=== PATIENT | female | born 2000 | race Caucasian/White ===

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

== ENCOUNTER → 2018-10-08 | Outpatient (CLI) | payer OTHER ==
[2018-10-08 14:05] LABS: HCT 39.5 % (34.0-46.0); HGB 12.4 gm/dL (11.4-16.0); MCH 28.3 pg (25.0-35.0); MCHC 31.4 g/dL (31.0-37.0); MCV 90.1 fL (80.0-100.0); Mean Platelet Volume 7.1; Platelet Count 214 k/uL (150-450); RBC 4.39 m/uL (3.80-5.40); RDW 12.6 % (11.5-15.5); WBC 9.1 k/uL (4.0-11.0)
--- NOTE | 2018-10-08 14:14 | US ---
EXAMINATION TYPE: Transabdominal DATE OF EXAM: 12/26/17 COMPARISON: NONE CLINICAL HISTORY: Z36 Confirm dates- patient states LMP does not correlate to previous ultrasounds [facility]. EXAM PERFORMED: Transabdominal (TA) EXAM MEASUREMENTS: GESTATIONAL AGE / DATING Physician Established: Not yet established Dates by LMP: 07/03/2018 Dates by First Scan: No previous this is first scan Dates by Current Scan for: (10 weeks/4 days) EDC: 05/02/2019 MATERNAL ANATOMY Uterus: 11.6 x 3.9 x 5.9 cm Right Ovary: 2.2 x 1.3 x 1.8 cm Left Ovary: 3.6 x 2.3 x 3.2 cm Post CDS / Adnexa: wnl Presence of free fluid: No Presence of corpus luteal cyst: Yes, left ovary measuring 1.5 x 1.2 x 1.3 cm Presence of subchorionic bleed: No GESTATION / SURVEY CRL: 3.7 cm (10 weeks/4 days) Heart Rate: 171 bpm Rhythm: Normal IUP: Live IUP Date of LMP: 07/03/2018 Beta HcG (if available): Not available at this time Live IUP with an STEPHANIE of 05/02/2019 by this exam IMPRESSION: Single live intrauterine with a sonographic age of 10 weeks and 4 days and estimated date o f delivery of 05/02/2019. Dates are discordant with menstrual age.
[2018-10-08 14:22] LABS: Glucose 97 mg/dL (74-99)
[2018-10-08 20:43] LABS: HIV 1 AB Non-Reactive (Non-Reactive); HIV AB P24 Non-Reactive (Non-Reactive); HIV P24 AG Non-Reactive (Non-Reactive)
[2018-10-09 03:54] LABS: Toxoplasma Antibody (IgG) <3.0 IU/mL (<7.2); Toxoplasma Antibody (IgM) 3.4 AU/mL (<8.0)
== END ==
LOC: RADUSWWP 12:59
PROVIDERS: ATTEND Obstetrics & Gynecology
DX: Z36.89 Encounter for other specified antenatal screening (principal); Z34.01 Encounter for supervision of normal first pregnancy, first trimester; Z3A.10 10 weeks gestation of pregnancy
CPT/HCPCS: 76801; 82565; 82947; 85027; 86762; 86777; 86778; 86780; 86850; 86900; 86901; 87340; 87390

== ENCOUNTER 2018-10-29 21:07 | Emergency (ER) | payer OTHER ==
[2018-10-29 21:31] VITALS: BP 109/71; PULSE 92; RESP 20; TEMP 98.1
--- NOTE | 2018-10-29 22:19 | ED ---
General Adult HPI - General Chief complaint: Skin/Abscess/Foreign Body Stated complaint: rash on back of neck Time Seen by Provider: 10/29/18 21:36 Source: patient, family, RN notes reviewed, old records reviewed Mode of arrival: ambulatory Limitations: no limitations - History of Present Illness Initial comments: 18-year-old female patient 14 weeks gestation presents to ED with rash on back of neck resembling tinea corporis. Patient has not had this before. Patient states that he was first noticed by her sister yesterday. Patient denies any other complaints. Patient denies fever chills, abdominal pain, vaginal bleeding, vaginal discharge, dysuria. Systemic: Pt denies fatigue, myalgia, fever/chills. Pt denies weakness, night sweats, weight loss. Neuro: Pt denies headache, visual disturbances, syncope or pre-syncope. HEENT: Pt denies ocular discharge or irritation, otalgia, rhinorrhea, pharyngitis or notable lymphadenopathy. Cardiopulmonary: Pt denies chest pain, SOB, heart palpitations, dyspnea on exertion. Abdominal/GI: Pt denies abdominal pain, n/v/d. : Pt denies dysuria, burning w/ urination, frequency/urgency. Denies new onset urinary or bowel incontinence. MSK: Pt denies myalgia, loss of strength or function in extremities. Neuro: Pt denies new onset weakness, paresthesias. - Related Data Home Medications Medication Instructions Recorded Confirmed Albuterol Inhaler [Ventolin Hfa 1 - 2 puff INHALATION RT-QID PRN 08/25/17 Inhaler] Previous Rx's Medication Instructions Recorded Amoxicillin 500 mg PO Q8H 10 Days day 08/25/17 Clotrimazole [Clotrimazole 1% Top 1 applic TOPICAL Q12HR 14 Days #1 10/29/18 Soln] tube Allergies Allergy/AdvReac Type Severity Reaction Status Date / Time Latex, Natural Rubber Allergy Swelling Verified 10/29/18 21:31 Review of Systems ROS Statement: Those systems with pertinent positive or pertinent negative responses have been documented in the HPI. ROS Other: All systems not noted in ROS Statement are negative. Past Medical History Past Medical History: Asthma History of Any Multi-Drug Resistant Organisms: None Reported Past Surgical History: No Surgical Hx Reported Past Psychological History: Depression Smoking Status: Never smoker Past Alcohol Use History: None Reported Past Drug Use History: Marijuana General Exam - General Exam Comments Initial Comments: Constitutional: NAD, AOX3, Pt has pleasant affect. HEENT: NC/AT, trachea midline, neck supple, no lymphadenopathy. Posterior pharynx non erythematous, without exudates. External ears appear normal, without discharge. Mucous membranes moist. Eyes PERRLA, EOM intact. There is no scleral icterus. No pallor noted. Cardiopulmonary: RRR, no murmurs, rubs or gallops, no JVD noted. Lungs CTAB in anterior and posterior alvarado. No peripheral edema. Abdominal exam: Abdomen soft and non-distended. Abdomen non-tender to palpation in all 4 quadrants. Bowel sounds active in LLQ. No hepatosplenomegaly. No ecchymosis Neuro: CN II-XII grossly intact. No nuchal rigidity. MSK: No posterior calf tenderness bilaterally, homans sign negative bilaterally. Posterior tibialis and radial pulse +2 bilaterally. Sensation intact in upper and lower extremities. Full active ROM in upper and lower extremities, 5/5 stregnth. Derm: Tinea corporis rash approx 2cm in diameter noted on posterior neck. Limitations: no limitations Course Vital Signs 10/29/18 21:27 Temperature 98.1 F Pulse Rate 92 Respiratory 20 Rate Blood Pressure 109/71 O2 Sat by Pulse 97 Oximetry Medical Decision Making - Medical Decision Making 18-year-old female patient 14 weeks gestation presents to ED with tinea corporis. Patient has no other complaints. Patient vital signs stable. Patient to be treated with clotrimazole. Patient to follow up with primary care provider and [facility]IRSPR[facility] CUTTER in 1-2 days. Patient to return to ED if new signs or symptoms develop. Case discussed in depth with Dr. Magaña. Disposition Clinical Impression: Tinea corporis Disposition: HOME SELF-CARE Condition: Stable Instructions (If sedation given, give patient instructions): Tinea Corporis (ED ) Additional Instructions: Patient to adhere to previously discussed treatment plan and will take medication(s) as directed. Patient to follow up with PCP in 1-2 days. Patient to return to ED if symptoms do not improve. Prescriptions: Clotrimazole [Clotrimazole 1% Top Soln] 1 applic TOPICAL Q12HR 14 Days #1 tube Is patient prescribed a controlled substance at d/c from ED?: No Referrals: Tye Stark MD [Primary Care Provider] - 1-2 days
== END 2018-10-29 22:23 | disposition home or self-care (01) ==
LOC: EC 21:07
DX: O98.811 Other maternal infectious and parasitic diseases complicating pregnancy, first trimester (principal); B35.4 Tinea corporis; O99.511 Diseases of the respiratory system complicating pregnancy, first trimester; J45.909 Unspecified asthma, uncomplicated; Z3A.14 14 weeks gestation of pregnancy; Z91.040 Latex allergy status
CPT/HCPCS: 99283

== ENCOUNTER 2018-11-29 10:36 | Emergency (ER) | payer OTHER ==
[2018-11-29] MEDS ORDERED: SODIUM CHLORIDE 0.9% 1,000 ML IV STA (11:32)
--- NOTE | 2018-11-29 11:59 | ED ---
Dizziness HPI - General Chief Complaint: Dizziness Stated Complaint: 18 WEEKS , DIZZINESS, NAUSEA, SOB Time Seen by Provider: 11/29/18 11:24 Source: patient, RN notes reviewed Mode of arrival: ambulatory Limitations: no limitations - History of Present Illness Initial Comments: 18-year-old female presents emergency Department with chief complaint of near syncopal episode. Patient states she was at work states she was not feeling well and states that she started walking towards the back break room. Patient states that she had to fall to her knees that she felt she was in a pass out. Patient states she had some tunnel vision and black spots. She never loss conscious. Patient states she did vomit but was given food after states it did help some. Patient is currently eating weeks A0 and seen Dr. De La Paz. She has no abdominal pain no vaginal bleeding or vaginal discharge. Patient states that she was drinking some fluids today but or any breakfast. - Related Data Home Medications Medication Instructions Recorded Confirmed Epk-Uvce-Urckx Acid 1 cap PO DAILY 11/29/18 11/29/18 [-U Capsule (formulary)] Allergies Allergy/AdvReac Type Severity Reaction Status Date / Time Latex, Natural Rubber Allergy Swelling Verified 11/29/18 11:11 Review of Systems ROS Statement: Those systems with pertinent positive or pertinent negative responses have been documented in the HPI. ROS Other: All systems not noted in ROS Statement are negative. Past Medical History Past Medical History: Asthma History of Any Multi-Drug Resistant Organisms: None Reported Past Surgical History: No Surgical Hx Reported Past Psychological History: Depression Smoking Status: Never smoker Past Alcohol Use History: None Reported Past Drug Use History: Marijuana General Exam Limitations: no limitations General appearance: alert, in no apparent distress Head exam: Present: atraumatic, normocephalic, normal inspection Eye exam: Present: normal appearance, PERRL, EOMI. Absent: scleral icterus, conjunctival injection, periorbital swelling ENT exam: Present: normal exam, normal oropharynx, mucous membranes moist, TM's normal bilaterally Neck exam: Present: normal inspection, full ROM. Absent: tenderness, meningismus, lymphadenopathy Respiratory exam: Present: normal lung sounds bilaterally. Absent: respiratory distress, wheezes, rales, rhonchi, stridor Cardiovascular Exam: Present: regular rate, normal rhythm, normal heart sounds. Absent: systolic murmur, diastolic murmur, rubs, gallop, clicks GI/Abdominal exam: Present: soft, normal bowel sounds. Absent: distended, tenderness, guarding, rebound, rigid Back exam: Absent: CVA tenderness (R), CVA tenderness (L) Neurological exam: Present: alert, oriented X3, CN II-XII intact Skin exam: Present: warm, dry, intact, normal color. Absent: rash Course Vital Signs 11/29/18 11/29/18 10:42 12:37 Temperature 98 F Pulse Rate 90 92 Respiratory 18 16 Rate Blood Pressure 101/60 97/65 O2 Sat by Pulse 100 100 Oximetry Medical Decision Making - Medical Decision Making 18-year-old female presented for near-syncopal episode. Patient had laboratory, IV hydration. Patient states she does feel improved. She did have mild hyperglycemia. Patient was able tolerate oral juice and PMR crackers. Patient will be discharged at this time she is advised to increase her fluid intake, eat small frequent meals. Patient will follow-up with [facility]. - Lab Data Result diagrams: 11/29/18 11:49 11/29/18 11:49 Lab Results 11/29/18 11/29/18 11/29/18 Range/Units 11:49 11:49 12:29 WBC 7.3 (4.0-11.0) k/uL RBC 4.47 (3.80-5.40) m/uL Hgb 13.4 (11.4-16.0) gm/dL Hct 40.9 (34.0-46.0) % MCV 91.6 (80.0-100.0) fL MCH 30.0 (25.0-35.0) pg MCHC 32.8 (31.0-37.0) g/dL RDW 13.3 (11.5-15.5) % Plt Count 252 (150-450) k/uL Neutrophils % 80 % Lymphocytes % 15 % Monocytes % 4 % Eosinophils % 1 % Basophils % 0 % Neutrophils # 5.8 (1.3-7.7) k/uL Lymphocytes # 1.1 (1.0-4.8) k/uL Monocytes # 0.3 (0-1.0) k/uL Eosinophils # 0.1 (0-0.7) k/uL Basophils # 0.0 (0-0.2) k/uL Sodium 138 (137-145) mmol/L Potassium 4.1 (3.5-5.1) mmol/L Chloride 104 (98-107) mmol/L Carbon Dioxide 24 (22-30) mmol/L Anion Gap 10 mmol/L BUN 12 (7-17) mg/dL Creatinine 0.46 L (0.52-1.04) mg/dL Est GFR (CKD-EPI)AfAm >90 (>60 ml/min/1.73 sqM) Est GFR (CKD-EPI)NonAf >90 (>60 ml/min/1.73 sqM) Glucose 72 L (74-99) mg/dL Calcium 9.8 (8.4-10.2) mg/dL Total Bilirubin 0.4 (0.2-1.3) mg/dL AST 21 (14-36) U/L ALT 24 (9-52) U/L Alkaline Phosphatase 46 (38-126) U/L Total Protein 7.6 (6.3-8.2) g/dL Albumin 4.7 (3.5-5.0) g/dL Urine Color Yellow Urine Appearance Clear (Clear) Urine pH 6.0 (5.0-8.0) Ur Specific [place] 1.020 (1.001-1.035) Urine Protein Trace H (Negative) Urine Glucose (UA) Negative (Negative) Urine Ketones Negative (Negative) Urine Blood Negative (Negative) Urine Nitrite Negative (Negative) Urine Bilirubin Negative (Negative) Urine Urobilinogen <2.0 (<2.0) mg/dL Ur Leukocyte Esterase Trace H (Negative) Urine RBC 1 (0-5) /hpf Urine WBC 3 (0-5) /hpf Ur Squamous Epith Cells 4 (0-4) /hpf Hyaline Casts 2 (0-2) /lpf Urine Mucus Moderate H (None) /hpf - EKG Data EKG Comments: EKG performed at 12:15 normal sinus rhythm with rate of 79 MD 128 QRS 78 QT/QTC 398/456 Disposition Clinical Impression: Near syncope, Hypoglycemia Disposition: HOME SELF-CARE Condition: Stable Instructions (If sedation given, give patient instructions): Near Syncope (ED) Additional Instructions: Please return to the Emergency Department if symptoms worsen or any other concerns. Is patient prescribed a controlled substance at d/c from ED?: No Referrals: Tye Stark MD [Primary Care Provider] - 1-2 days
[2018-11-29 12:03] LABS: Basophils % (A) 0 %; Eosinophils # (A) 0.1 k/uL (0-0.7); Eosinophils % (A) 1 %; HCT 40.9 % (34.0-46.0); HGB 13.4 gm/dL (11.4-16.0); Lymphocytes # (A) 1.1 k/uL (1.0-4.8); Lymphocytes % (A) 15 %; MCHC 32.8 g/dL (31.0-37.0); MCV 91.6 fL (80.0-100.0); Mean Platelet Volume 6.9; Monocytes # (A) 0.3 k/uL (0-1.0); Monocytes % (A) 4 %; Neutrophils # (A) 5.8 k/uL (1.3-7.7); Neutrophils % (A) 80 %; Platelet Count 252 k/uL (150-450); RBC 4.47 m/uL (3.80-5.40); RDW 13.3 % (11.5-15.5); WBC 7.3 k/uL (4.0-11.0)
[2018-11-29 12:13] LABS: ALT 24 U/L (9-52); AST 21 U/L (14-36); Albumin 4.7 g/dL (3.5-5.0); Alkaline Phosphatase 46 U/L (38-126); Anion Gap 10 mmol/L; Blood Urea Nitrogen 12 mg/dL (7-17); Calcium 9.8 mg/dL (8.4-10.2); Carbon Dioxide 24 mmol/L (22-30); Chloride 104 mmol/L (98-107); Glucose 72 mg/dL (74-99); Potassium 4.1 mmol/L (3.5-5.1); Sodium 138 mmol/L (137-145); Total Bilirubin 0.4 mg/dL (0.2-1.3); Total Protein 7.6 g/dL (6.3-8.2)
[2018-11-29 12:40] VITALS: PULSE 92; RESP 16
[2018-11-29 12:53] LABS: Appearance,Urine Clear (Clear); Bilirubin,Urine Negative (Negative); Blood,Urine Negative (Negative); Color,Urine Yellow; Glucose,Urine (UA) Negative (Negative); Hyaline Casts,Urine 2 /lpf (0-2); Ketones,Urine Negative (Negative); Leukocyte Esterase,Urine Trace (Negative); Mucus,Urine Moderate /hpf; Nitrite,Urine Negative (Negative); Protein,Urine Trace (Negative); RBC,Urine 1 /hpf (0-5); Squamous Epithelial Cell,Urine 4 /hpf (0-4); Urobilinogen,Urine <2.0 mg/dL (<2.0); WBC,Urine 3 /hpf (0-5)
[2018-11-29 13:20] VITALS: BP 106/73; TEMP 98.7
== END 2018-11-29 13:19 | disposition home or self-care (01) ==
LOC: EC 10:36
DX: O99.282 Endocrine, nutritional and metabolic diseases complicating pregnancy, second trimester (principal); E16.2 Hypoglycemia, unspecified; O99.89 Other specified diseases and conditions complicating pregnancy, childbirth and the puerperium; R55 Syncope and collapse; R42 Dizziness and giddiness; O21.9 Vomiting of pregnancy, unspecified; Z3A.18 18 weeks gestation of pregnancy; Z91.040 Latex allergy status
CPT/HCPCS: 36415; 80053; 81001; 85025; 93005; 96360; 99284

== ENCOUNTER 2018-12-08 21:32 | Emergency (ER) | payer OTHER ==
[2018-12-08] MEDS ORDERED: SODIUM CHLORIDE 0.9% 1,000 ML IV STA (22:20)
[2018-12-08] MEDS ORDERED: ACETAMINOPHEN TAB 500 MG TAB PO STA (22:20)
--- NOTE | 2018-12-08 22:23 | ED ---
General Adult HPI - General Chief complaint: Upper Respiratory Infection Stated complaint: 20wks -Flu body aches Time Seen by Provider: 12/08/18 21:53 Source: patient Mode of arrival: ambulatory Limitations: no limitations - History of Present Illness Initial comments: Patient is a 18-year-old female that is 20 weeks presenting for flulike symptoms. Patient states that couple days ago, the father was diagnosed with the flu and for the last couple days, she has been having myalgias, fevers or chills and 5 episodes of vomiting. She denies any diarrhea but states that she has been coughing. She denies any vaginal bleeding as well or significant abdominal pain. She states that she has been able feel the baby move as well. - Related Data Home Medications Medication Instructions Recorded Confirmed Ixj-Sfgx-Bhccg Acid 1 cap PO DAILY 11/29/18 12/08/18 [-U Capsule (formulary)] Allergies Allergy/AdvReac Type Severity Reaction Status Date / Time Latex, Natural Rubber Allergy Swelling Verified 12/08/18 22:24 Review of Systems ROS Statement: Those systems with pertinent positive or pertinent negative responses have been documented in the HPI. Constitutional: Positive for chills, fatigue and fever. HENT: Positive for congestion. Respiratory: Negative for chest tightness, shortness of breath and wheezing. Positive for cough Cardiovascular: Negative for chest pain and palpitations. Gastrointestinal: Negative for abdominal pain. Negative for abdominal distenti on, diarrhea, positive for nausea and vomiting. Genitourinary: Negative for dysuria. Musculoskeletal: Negative for back pain, neck pain and neck stiffness. Skin: Negative for color change. Neurological: Negative for dizziness, speech difficulty, weakness and light- headedness. Psychiatric/Behavioral: Negative for agitation and confusion. Negative for anxiety ROS Other: All systems not noted in ROS Statement are negative. Past Medical History Past Medical History: Asthma History of Any Multi-Drug Resistant Organisms: None Reported Past Surgical History: No Surgical Hx Reported Past Psychological History: Depression Smoking Status: Never smoker Past Alcohol Use History: None Reported Past Drug Use History: Marijuana General Exam - General Exam Comments Initial Comments: Constitutional: Pt appears well-developed and well-nourished. No distress. Head: Normocephalic and atraumatic. Eyes: EOM are normal. Neck: Normal range of motion. Neck supple. Cardiovascular: Tachycardia, regular rhythm, S1 normal, S2 normal and normal heart sounds. Exam reveals no gallop and no friction rub. No murmur heard. Pulmonary/Chest: Effort normal and breath sounds normal. No tachypnea and no bradypnea. No respiratory distress. No wheezes or rales noted. Abdominal: Soft. Bowel sounds are normal. Pt exhibits no shifting dullness, no distension, no pulsatile liver, no fluid wave, no abdominal bruit and no ascites . There is no rigidity, no rebound, no guarding, no tenderness at McBurney's point and negative Verduzco's sign. There is no tenderness. Musculoskeletal: Normal range of motion. Neurological: Pt is alert and oriented to person, place, and time. No cranial nerve deficit. Skin: Skin is warm and dry. No rash noted. Pt is not diaphoretic. No erythema. No pallor. Psychiatric: Pt has a normal mood and affect. Pt behavior is normal. Thought content normal. Limitations: no limitations Course Vital Signs 12/08/18 12/08/18 21:43 23:56 Temperature 99.4 F 99 F Pulse Rate 128 H 102 H Respiratory 18 14 Rate Blood Pressure 107/67 95/62 O2 Sat by Pulse 98 98 Oximetry Medical Decision Making - Medical Decision Making Laboratory studies showed that there was no significant leukocytosis, electrolyte derangements or urinary tract infection. Patient did test positive for flu a but because Tamiflu is category C, this was not initiated. Chest x-ra y also showed no evidence of infiltrate and heart tones were obtained in the ER and noted to be approximately 155 bpm. Case was discussed as well with OB on-call, Dr. Driver, covering for the patient's OB doctor and it was agreed that the patient could follow-up as an outpatient. Pt Was agreeable plan and noted to be resting in bed complaining no acute distress time of disposition. - Lab Data Result diagrams: 12/08/18 22:49 12/08/18 22:49 Lab Results 12/08/18 12/08/18 12/08/18 Range/Units 22:49 22:49 22:49 WBC 7.2 (4.0-11.0) k/uL RBC 4.15 (3.80-5.40) m/uL Hgb 12.4 (11.4-16.0) gm/dL Hct 37.9 (34.0-46.0) % MCV 91.4 (80.0-100.0) fL MCH 29.8 (25.0-35.0) pg MCHC 32.6 (31.0-37.0) g/dL RDW 13.3 (11.5-15.5) % Plt Count 227 (150-450) k/uL Neutrophils % 84 % Lymphocytes % 9 % Monocytes % 4 % Eosinophils % 2 % Basophils % 0 % Neutrophils # 6.1 (1.3-7.7) k/uL Lymphocytes # 0.6 L (1.0-4.8) k/uL Monocytes # 0.3 (0-1.0) k/uL Eosinophils # 0.2 (0-0.7) k/uL Basophils # 0.0 (0-0.2) k/uL Sodium 134 L (137-145) mmol/L Potassium 4.0 (3.5-5.1) mmol/L Chloride 103 (98-107) mmol/L Carbon Dioxide 22 (22-30) mmol/L Anion Gap 9 mmol/L BUN 8 (7-17) mg/dL Creatinine 0.41 L (0.52-1.04) mg/dL Est GFR (CKD-EPI)AfAm >90 (>60 ml/min/1.73 sqM) Est GFR (CKD-EPI)NonAf >90 (>60 ml/min/1.73 sqM) Glucose 82 (74-99) mg/dL Calcium 9.2 (8.4-10.2) mg/dL Urine Color Urine Appearance (Clear) Urine pH (5.0-8.0) Ur Specific [place] (1.001-1.035) Urine Protein (Negative) Urine Glucose (UA) (Negative) Urine Ketones (Negative) Urine Blood (Negative) Urine Nitrite (Negative) Urine Bilirubin (Negative) Urine Urobilinogen (<2.0) mg/dL Ur Leukocyte Esterase (Negative) Urine WBC (0-5) /hpf Ur Squamous Epith Cells (0-4) /hpf Amorphous Sediment (None) /hpf Urine Bacteria (None) /hpf Urine Mucus (None) /hpf Influenza Type A RNA Detected H (Not Detectd) Influenza Type B (PCR) Not Detected (Not Detectd) 12/08/18 Range/Units 22:49 WBC (4.0-11.0) k/uL RBC (3.80-5.40) m/uL Hgb (11.4-16.0) gm/dL Hct (34.0-46.0) % MCV (80.0-100.0) fL MCH (25.0-35.0) pg MCHC (31.0-37.0) g/dL RDW (11.5-15.5) % Plt Count (150-450) k/uL Neutrophils % % Lymphocytes % % Monocytes % % Eosinophils % % Basophils % % Neutrophils # (1.3-7.7) k/uL Lymphocytes # (1.0-4.8) k/uL Monocytes # (0-1.0) k/uL Eosinophils # (0-0.7) k/uL Basophils # (0-0.2) k/uL Sodium (137-145) mmol/L Potassium (3.5-5.1) mmol/L Chloride (98-107) mmol/L Carbon Dioxide (22-30) mmol/L Anion Gap mmol/L BUN (7-17) mg/dL Creatinine (0.52-1.04) mg/dL Est GFR (CKD-EPI)AfAm (>60 ml/min/1.73 sqM) Est GFR (CKD-EPI)NonAf (>60 ml/min/1.73 sqM) Glucose (74-99) mg/dL Calcium (8.4-10.2) mg/dL Urine Color Light Yellow Urine Appearance Cloudy H (Clear) Urine pH 7.5 (5.0-8.0) Ur Specific [place] 1.013 (1.001-1.035) Urine Protein Negative (Negative) Urine Glucose (UA) Negative (Negative) Urine Ketones 1+ H (Negative) Urine Blood Negative (Negative) Urine Nitrite Negative (Negative) Urine Bilirubin Negative (Negative) Urine Urobilinogen <2.0 (<2.0) mg/dL Ur Leukocyte Esterase Trace H (Negative) Urine WBC 2 (0-5) /hpf Ur Squamous Epith Cells 3 (0-4) /hpf Amorphous Sediment Rare H (None) /hpf Urine Bacteria Occasional H (None) /hpf Urine Mucus Occasional H (None) /hpf Influenza Type A RNA (Not Detectd) Influenza Type B (PCR) (Not Detectd) Disposition Clinical Impression: Influenza A, Disposition: HOME SELF-CARE Condition: Good Instructions (If sedation given, give patient instructions): Influenza (ED) Is patient prescribed a controlled substance at d/c from ED?: No Referrals: Tye Stark MD [Primary Care Provider] - 1-2 days Sofie De La Paz DO [Doctor of Osteopathic Medicine] - 1-2 days Time of Disposition: 00:04 Decision Time: 23:56
--- NOTE | 2018-12-08 23:05 | XR ---
EXAM: XR Chest, 2 Views CLINICAL HISTORY: ITS.REASON XR Reason: Cough TECHNIQUE: Frontal and lateral views of the chest. COMPARISON: No relevant prior studies available. FINDINGS: Lungs: Unremarkable. No consolidation. Pleural space: Unremarkable. No pneumothorax. Heart: Unremarkable. No cardiomegaly. Mediastinum: Unremarkable. Bones/joints: No acute fracture. IMPRESSION: No acute findings.
[2018-12-08 23:06] LABS: Basophils % (A) 0 %; Eosinophils # (A) 0.2 k/uL (0-0.7); Eosinophils % (A) 2 %; HCT 37.9 % (34.0-46.0); HGB 12.4 gm/dL (11.4-16.0); Lymphocytes # (A) 0.6 k/uL (1.0-4.8); Lymphocytes % (A) 9 %; MCH 29.8 pg (25.0-35.0); MCHC 32.6 g/dL (31.0-37.0); MCV 91.4 fL (80.0-100.0); Mean Platelet Volume 6.8; Monocytes # (A) 0.3 k/uL (0-1.0); Monocytes % (A) 4 %; Neutrophils # (A) 6.1 k/uL (1.3-7.7); Neutrophils % (A) 84 %; Platelet Count 227 k/uL (150-450); RBC 4.15 m/uL (3.80-5.40); RDW 13.3 % (11.5-15.5); WBC 7.2 k/uL (4.0-11.0)
[2018-12-08 23:07] LABS: Amorphous Sediment,Urine Rare /hpf; Appearance,Urine Cloudy (Clear); Bacteria,Urine Occasional /hpf; Bilirubin,Urine Negative (Negative); Blood,Urine Negative (Negative); Color,Urine Light Yellow; Glucose,Urine (UA) Negative (Negative); Ketones,Urine 1+ (Negative); Leukocyte Esterase,Urine Trace (Negative); Mucus,Urine Occasional /hpf; Nitrite,Urine Negative (Negative); PH, Urine 7.5 (5.0-8.0); Protein,Urine Negative (Negative); Specific Gravity,Urine 1.013 (1.001-1.035); Squamous Epithelial Cell,Urine 3 /hpf (0-4); Urobilinogen,Urine <2.0 mg/dL (<2.0); WBC,Urine 2 /hpf (0-5)
[2018-12-08 23:19] LABS: Anion Gap 9 mmol/L; Blood Urea Nitrogen 8 mg/dL (7-17); Calcium 9.2 mg/dL (8.4-10.2); Carbon Dioxide 22 mmol/L (22-30); Chloride 103 mmol/L (98-107); Glucose 82 mg/dL (74-99); Sodium 134 mmol/L (137-145)
[2018-12-08 23:58] VITALS: BP 95/62; PULSE 102; RESP 14; TEMP 99
== END 2018-12-09 00:20 | disposition home or self-care (01) ==
LOC: EC 21:32
DX: O99.512 Diseases of the respiratory system complicating pregnancy, second trimester (principal); J10.1 Influenza due to other identified influenza virus with other respiratory manifestations; O99.89 Other specified diseases and conditions complicating pregnancy, childbirth and the puerperium; R00.0 Tachycardia, unspecified; J45.909 Unspecified asthma, uncomplicated; Z91.040 Latex allergy status; Z3A.20 20 weeks gestation of pregnancy
CPT/HCPCS: 36415; 71046; 80048; 81001; 85025; 87086; 87502; 96360; 99283

== ENCOUNTER 2019-03-11 14:41 | Outpatient (CLI) | payer OTHER ==
[2019-03-11 16:05] VITALS: BP 118/76; PULSE 89; RESP 16; TEMP 97.3
--- NOTE | 2019-03-11 18:20 | P.MSEPDOC ---
Presenting Problems - Arrival Data Date of Arrival on Unit: 03/11/19 Time of Arrival on Unit: 14:41 Mode of Transport: Ambulatory - Complaint OB-Reason for Admission/Chief Complaint: Possible Onset of Labor Comment: fredrick yesterday Medical History - Information : 1 Para: 0 Term: 0 : 0 Abortions: Spontaneous or Elective: 0 Number of Living Children: 0 - Gestational Age Gestational Age by STEPHANIE (wks/days): 32 Weeks and 4 Days - History Comment: none Review of Systems - Review of Systems Constitutional: No problems Breast: No problems ENT: No problems Cardiovascular: No problems Respiratory: No problems Gastrointestinal: No problems Genitourinary: No problems Musculoskeletal: No problems Neurological: No problems Skin: No problems Vital Signs - Temperature Temperature: 97.3 F Temperature Source: Temporal Artery Scan - Pulse Right Supine Brachial Pulse Rate: 89 Pulse Assessment Method: Automatic Cuff - Respirations Respiratory Rate: 16 Oxygen Delivery Method: Room Air O2 Sat by Pulse Oximetry: 98 - Blood Pressure Right Arm Supine Blood Pressure: 118/76 Blood Pressure Mean: 90 Blood Pressure Source: Automatic Cuff Medical Screen Scoring (Pre) - Cervical Exam Dilation: 0 cm = 0 Membranes: Intact - Uterine Contractions Frequency: > 5 minutes apart = 1 - Maternal Vital Signs Maternal Temperature: N/A Maternal Blood Pressure: N/A - Maternal Trauma Maternal Trauma: N/A - Assessment - Baby A Baseline FHR: 135 Heart Rate - NICHD Category: Category I (Normal) = 0 NST: Reactive - Total Score - Baby A Total Score - Baby A: 1 - Total Score - Baby B Total Score - Baby B: 1 - Total Score - Baby C Total Score - Baby C: 1 - Level of Risk - Baby A Level of Risk - Baby A: Low (0-5) - Level of Risk - Baby B Level of Risk - Baby B: Low (0-5) - Level of Risk - Baby C Level of Risk - Baby C: Low (0-5) Physician Notification (Pre) - Physician Notified Physician Notified Date: 03/11/19 Physician Notified Time: 15:18 Physician/Practitioner Notifed:: Dr Driver New Order Received: Yes - Notification Comment Comment: Perform vag exam and obtain FFN, if closed then may discahrge to home and no need to send FFN Disposition - Disposition OB Disposition: Discharge to home Discharge Date: 03/11/19 Discharge Time: 15:50 I agree with the RN Medical Screening Exam: Yes Risk & Benefit of care provided described in d/c instruction: Yes Diagnosis: FALSE LABOR BEFORE 37 COMPLETED WEEKS OF GEST, THIRD TRI (Patient presents with cramping and spotting after having intercourse yesterday. Evaluation shows cervix to be closed, category 1 heart tones, and no evidence of maternal compromise. Patient instructed on pelvic rest and follow-up with Dr. De La Paz in the office.)
== END 2019-03-11 15:50 | disposition home or self-care (01) ==
LOC: FBPOP 14:41
PROVIDERS: ATTEND Obstetrics & Gynecology
DX: O47.03 False labor before 37 completed weeks of gestation, third trimester (principal); Z3A.32 32 weeks gestation of pregnancy
CPT/HCPCS: 59025; G0463; 99213

== ENCOUNTER 2019-04-01 12:08 | Outpatient (CLI) | payer OTHER ==
[2019-04-01] MEDS ORDERED: DIPH,PERTUS(ACELL)TETVAC-LF 0.5 ML VIAL IM ONE (12:56)
[2019-04-01 15:25] VITALS: BP 124/77; PULSE 93; RESP 16; TEMP 98.2
--- NOTE | 2019-04-03 08:14 | P.MSEPDOC ---
Presenting Problems - Arrival Data Date of Arrival on Unit: 04/01/19 Time of Arrival on Unit: 12:05 Mode of Transport: Ambulatory - Complaint OB-Reason for Admission/Chief Complaint: NST Comment: sent with script for NST for IUGR Medical History - Information : 1 Para: 0 Term: 0 : 0 Abortions: Spontaneous or Elective: 0 Number of Living Children: 0 - Gestational Age Gestational Age by STEPHANIE (wks/days): 35 Weeks and 4 Days Review of Systems - Review of Systems Constitutional: No problems Breast: No problems ENT: No problems Cardiovascular: No problems Respiratory: No problems Gastrointestinal: No problems Genitourinary: No problems Musculoskeletal: No problems Neurological: No problems Skin: No problems Vital Signs - Temperature Temperature: 98.2 F Temperature Source: Oral - Pulse Right Brachial Pulse Rate: 93 Pulse Assessment Method: Automatic Cuff - Respirations Respiratory Rate: 16 Oxygen Delivery Method: Room Air - Blood Pressure Right Arm Blood Pressure: 124/77 Blood Pressure Mean: 92 Blood Pressure Source: Automatic Cuff Medical Screen Scoring (Pre) - Cervical Exam Dilation: Exam Deferred Effacement: Exam Deferred Membranes: Intact - Uterine Contractions Frequency: N/A Duration: N/A Intensity: N/A - Maternal Vital Signs Maternal Temperature: N/A Maternal Blood Pressure: N/A Signs of Preeclampsia: N/A Maternal Respirations: N/A - Maternal Trauma Maternal Trauma: N/A - Assessment - Baby A Baseline FHR: 130 Heart Rate - NICHD Category: Category I (Normal) = 0 NST: Reactive Position: N/A Station: N/A - Total Score - Baby A Total Score - Baby A: 0 - Total Score - Baby B Total Score - Baby B: 0 - Total Score - Baby C Total Score - Baby C: 0 - Level of Risk - Baby A Level of Risk - Baby A: Low (0-5) - Level of Risk - Baby B Level of Risk - Baby B: Low (0-5) - Level of Risk - Baby C Level of Risk - Baby C: Low (0-5) Medical Screen Scoring (Post) - Post Treatment Level of Risk Post Treatment Level of Risk - Baby A: Low (0-5) Physician Notification (Post) - Physician Notified Physician Notified Date: 04/01/19 Physician Notified Time: 12:55 Spoke With: Brain New Order Received: Yes - Notification Comment Comment: NST reactive, may have Tdap, may discharge with instruction Disposition - Disposition OB Disposition: Discharge to home, Written follow up instructions reviewed Discharge Date: 04/01/19 Discharge Time: 13:20 I agree with the RN Medical Screening Exam: Yes Risk & Benefit of care provided described in d/c instruction: Yes Diagnosis: MATERN CARE FOR OTH OR SUSP POOR FETL HECTOR, THIRD TRI, UNSP
== END 2019-04-01 13:20 | disposition home or self-care (01) ==
LOC: FBPOP 12:08
PROVIDERS: ATTEND Obstetrics & Gynecology
DX: O36.5930 Maternal care for other known or suspected poor fetal growth, third trimester, not applicable or unspecified (principal); Z3A.35 35 weeks gestation of pregnancy
CPT/HCPCS: 59025; 90715; G0463; 99213

== ENCOUNTER 2019-04-14 01:40 | Inpatient (IN) | payer OTHER ==
[2019-04-14 02:57] LABS: Appearance,Urine Clear (Clear); Bilirubin,Urine Negative (Negative); Blood,Urine Negative (Negative); Color,Urine Light Yellow; Glucose,Urine (UA) Negative (Negative); Hyaline Casts,Urine 4 /lpf (0-2); Ketones,Urine Negative (Negative); Leukocyte Esterase,Urine Trace (Negative); Mucus,Urine Rare /hpf; Nitrite,Urine Negative (Negative); PH, Urine 6.5 (5.0-8.0); Protein,Urine 3+ (Negative); RBC,Urine 1 /hpf (0-5); Specific Gravity,Urine 1.014 (1.001-1.035); Squamous Epithelial Cell,Urine 1 /hpf (0-4); Urobilinogen,Urine <2.0 mg/dL (<2.0); WBC,Urine 4 /hpf (0-5)
[2019-04-14 03:32] VITALS: BMI 29.0
[2019-04-14 03:35] LABS: ALT 16 U/L (9-52); AST 25 U/L (14-36); African American GFR (CKD) >90 (>60 ml/min/1.73 sqM); Basophils # (A) 0.1 k/uL (0-0.2); Basophils % (A) 1 %; Blood Urea Nitrogen 16 mg/dL (7-17); Eosinophils # (A) 0.4 k/uL (0-0.7); Eosinophils % (A) 4 %; HCT 36.3 % (34.0-46.0); HGB 12.2 gm/dL (11.4-16.0); LDH 454 U/L (313-618); Lymphocytes # (A) 3.7 k/uL (1.0-4.8); Lymphocytes % (A) 38 %; MCH 30.1 pg (25.0-35.0); MCHC 33.7 g/dL (31.0-37.0); MCV 89.2 fL (80.0-100.0); Mean Platelet Volume 10.2; Monocytes # (A) 0.6 k/uL (0-1.0); Monocytes % (A) 6 %; Neutrophils # (A) 4.8 k/uL (1.3-7.7); Neutrophils % (A) 49 %; Platelet Count 152 k/uL (150-450); RBC 4.07 m/uL (3.80-5.40); RDW 14.1 % (11.5-15.5); Uric Acid 6.8 mg/dL (3.7-7.4); WBC 9.8 k/uL (4.0-11.0)
--- NOTE | 2019-04-14 07:58 | P.HPOB ---
History of Present Illness H&P Date: 04/14/19 Chief Complaint: Lost mucous plug, concern for rupture of membranes. This patient is a pleasant 18-year-old 1 para 0 female estimated date of confinement 05/02/2019 estimated gestational age 37-3/7 weeks gestation who initially presented to labor and delivery with concerns with losing her mucous plug and possible rupture of membranes. Patient's evaluation was negative for rupture of membranes however patient was noted to have some elevated blood pressures. Patient's blood pressure on admission was 127/96 and she would intermittently have blood pressures of 130-140/70-90's. Patient's care is per Dr. De La Paz and it appears to be complicated by intrauterine growth restriction. Patient had a 35 week ultrasound that showed estimated weight of 4 lbs. 6 oz. which is less than the 10th percentile with a normal amniotic fluid at of 18.4. Patient was most recently in the office approximately 4 days ago and had a normal blood pressure but had 3+ proteinuria and blood work at that time showed normal liver function tests but platelets are 144 and uric acid was mildly elevated at 6.5. Repeat blood work here today demonstrates normal liver function tests every uric acid is trending upward at 6.8 and continues to have 3+ proteinuria. Patient denies headache, blurry vision, or other symptomatology. She reports good movement. heart tones are category 1. Cervix is 1 cm which is unchanged from her last office visit. Review of Systems Constitutional: Reports as per HPI Genitourinary: Reports Menstruation: Reports amenorrhea Past Medical History Past Medical History: Asthma History of Any Multi-Drug Resistant Organisms: None Reported Past Surgical History: No Surgical Hx Reported Past Anesthesia/Blood Transfusion Reactions: No Reported Reaction Past Psychological History: Depression Additional Psychological History / Comment(s): not currently medicated Smoking Status: Former smoker Past Alcohol Use History: None Reported Past Drug Use History: Marijuana - Past Family History Mother Family Medical History: No Reported History Medications and Allergies Home Medications Medication Instructions Recorded Confirmed Type Ayx-Udqx-Qjajk Acid 1 cap PO DAILY 11/29/18 04/14/19 History [-U Capsule (formulary)] Allergies Allergy/AdvReac Type Severity Reaction Status Date / Time Latex, Natural Rubber Allergy Swelling Verified 04/14/19 01:43 Exam Vital Signs Temp Pulse Resp BP BP Pulse Ox 04/14/19 05:59 65 14 115/76 04/14/19 05:01 78 14 124/80 04/14/19 04:00 77 14 142/76 04/14/19 02:55 98.0 F 72 14 139/94 04/14/19 02:37 116/80 04/14/19 02:30 110/70 04/14/19 02:24 97.9 F 81 16 127/96 98 04/14/19 02:17 104/75 04/14/19 02:09 74 126/84 04/14/19 02:05 81 135/98 04/14/19 01:49 97.9 F 80 16 141/97 99 Intake and Output 04/13/19 04/14/19 04/14/19 22:59 06:59 14:59 Other: # Voids 2 Weight 67.585 kg - OBG Physical Exam Abdomen: bowel sounds normal, no diffuse tenderness, no bruit present, no guarding noted, no hepatomegaly, no splenomegaly, no mass Cervix: no lesion (Cervix is 1 cm dilated per RN.), no discharge Uterus: enlarged (Fundal height in the office is 36 cm) Results blood work shows she is a positive, rubella nonimmune, RPR nonreactive, hepatitis B negative, ultrasound done on April 01 showed estimated weight at 4 lbs. 6 oz. which is less than the 10th percentile with an amniotic fluid index of 18.4. Result Diagrams: 04/14/19 03:16 04/14/19 03:16 Abnormal Lab Results - Last 24 Hours (Table) 04/14/19 04/14/19 Range/Units 02:15 02:15 Urine Protein 3+ H (Negative) Ur Leukocyte Esterase Trace H (Negative) Hyaline Casts 4 H (0-2) /lpf Urine Mucus Rare H (None) /hpf U Random Total Protein 513 H (<12) mg/dL Assessment and Plan Assessment: This is a pleasant 18-year-old 1 para 0 female 37-3/7 weeks gestation who was initially admitted for concern for rupture membranes who was found not to be ruptured. In the process of evaluation however patient has had some elevated blood pressures and most recently 3+ proteinuria noted in the office. It is my impression this patient has gestational hypertension therefore the plan is admission for a 24-hour urine, serial blood work, and most likely will need to proceed with delivery tomorrow. I have had a long discussion with the patient about her clinical situation and she understands and all questions are answered. (1) 37 weeks gestation of Current Visit: Yes Status: Acute Code(s): Z3A.37 - 37 WEEKS GESTATION OF SNOMED Code(s): 49044590 (2) Intrauterine growth restriction (IUGR) affecting care of mother Current Visit: Yes Status: Acute Code(s): O36.5990 - MATERN CARE FOR OTH OR SUSP POOR FETL GRTH, UNSP TRI, UNSP SNOMED Code(s): 677396984 (3) Gestational hypertension Current Visit: Yes Status: Acute Code(s): O13.9 - GESTATIONAL HTN W/O SIGNIFICANT PROTEINURIA, UNSP TRIMESTER SNOMED Code(s): 344629805 (4) Proteinuria affecting in third trimester Current Visit: Yes Status: Acute Code(s): O12.13 - GESTATIONAL PROTEINURIA, THIRD TRIMESTER SNOMED Code(s): 58357647
[2019-04-15 03:19] LABS: Total Volume 24 Hour,Urine 1400 mls (800-1800)
[2019-04-15 03:45] LABS: Total Protein 24 Hour,Urine 6594 mg/24hr (42.0-225.0)
[2019-04-15 05:56] LABS: Basophils # (A) 0.1 k/uL (0-0.2); Basophils % (A) 1 %; Eosinophils # (A) 0.3 k/uL (0-0.7); Eosinophils % (A) 3 %; HCT 39.5 % (34.0-46.0); HGB 12.6 gm/dL (11.4-16.0); Lymphocytes # (A) 3.4 k/uL (1.0-4.8); Lymphocytes % (A) 38 %; MCH 28.9 pg (25.0-35.0); MCHC 31.9 g/dL (31.0-37.0); MCV 90.5 fL (80.0-100.0); Mean Platelet Volume 10.3; Monocytes # (A) 0.5 k/uL (0-1.0); Monocytes % (A) 6 %; Neutrophils # (A) 4.5 k/uL (1.3-7.7); Neutrophils % (A) 51 %; Platelet Count 148 k/uL (150-450); RBC 4.36 m/uL (3.80-5.40); RDW 14.2 % (11.5-15.5); WBC 8.9 k/uL (4.0-11.0)
[2019-04-15 06:04] LABS: INR 0.8 (<1.2); Partial Thromboplastin Time 25.2 sec (22.0-30.0); Prothrombin Time 9.4 sec (9.0-12.0)
[2019-04-15 06:07] LABS: Albumin 3.2 g/dL (3.5-5.0); Bilirubin,Unconjugated 0.4 mg/dL (0.0-1.1); Total Bilirubin 0.3 mg/dL (0.2-1.3); Total Protein 5.6 g/dL (6.3-8.2); Uric Acid 7.2 mg/dL (3.7-7.4)
[2019-04-15] MEDS ORDERED: CARBOPROST TROMETHAMINE 250 MCG/ML 1 ML AMP IM PRN (06:15)
[2019-04-15] MEDS ORDERED: METHYLERGONOVINE 0.2 MG/ML 1 ML AMP IM PRN (06:15)
[2019-04-15] MEDS ORDERED: TERBUTALINE 1 MG/ML VIAL SQ PRN (06:15)
[2019-04-15] MEDS ORDERED: OXYTOCIN 10 UNIT/ML 1 ML VIAL IM PRN (06:15)
[2019-04-15] MEDS ORDERED: LIDOCAINE 0.5% (PF) 5 MG/ML (50 ML SDV) SQ PRN (06:15)
[2019-04-15 06:19] LABS: Bilirubin, Delta -0.1 mg/dL (0.0-0.2)
--- NOTE | 2019-04-15 06:23 | P.PN ---
Progress Note - Text Progress Note Date: 04/15/19 Patient has rested overnight without new complaints. Blood pressures were actually very good with the exception of a mild diastolic blood pressure in the 90s. Highest blood pressure was 125/95. Patient denies complaints of headaches or other symptomatology. heart tones are reactive. Repeat blood work shows the platelets to be 148, hepatic function panel is pending, however urine protein for 24-hour shows 6594 mg. I discussed with the patient this significant proteinuria and although her blood pressures look good she is having criteria for gestational hypertension therefore recommended proceed with delivery at this time. Plan at this time is to begin Pitocin induction of labo r. I will alert the special care nursery due to the growth restriction status. Anticipate vaginal delivery.
[2019-04-15] MEDS: LACTATED RINGERS 1,000 ML IV SCH ×3 (06:25→17:21)
[2019-04-15] MEDS: OXYTOCIN 30 UNITS/500 ML NS 30 UNIT in SALINE 1 500ML.BAG IV SCH (06:42)
[2019-04-15] MEDS ORDERED: BUTORPHANOL 1 MG/ML 1 ML VIAL IV PRN (10:28)
[2019-04-15] MEDS ORDERED: ROPIVACAINE 100 MG, fentaNYL (PF) 200 MCG in SODIUM CHLORIDE 0.9% 76 ML EPIDURAL ONE (17:43)
[2019-04-15] MEDS ORDERED: AMPICILLIN 2,000 MG in SODIUM CHLORIDE 0.9% 100 ML IVPB STA (19:30)
--- NOTE | 2019-04-15 23:53 | P.PROBDLV ---
Vaginal Delivery Note - . Vaginal Delivery Note: The patient progressed to complete dilation after oxytocin induction of labor and artificial rupture membranes with clear fluid noted. She did receive epidural anesthesia. Once reaching complete dilation, she began pushing. Infant's head came to a crown. With one further push the infant's head delivered across the perineum in a left occiput anterior lie followed by the anterior shoulder. At this point nuchal cord 3 was noted. This was doubly clamped and cut and then reduced around the 's head 3 times. Once the cord was reduced, the remainder the infant easily delivered and was placed on mother's abdomen. Nose and mouth were bulb suctioned and was taken to warmer for evaluation by nursing staff. A viable female was noted with scores of 5 at 1 minute and 7 at 5 minutes and weight of 4 pounds 7.4 ounces. Placenta delivered shortly thereafter, intact, with a three-vessel cord. Placenta will be sent to pathology due to IUGR and preeclampsia. Uterus contracted well after oxytocin was given and uterine massage was carried out. Inspection of the perineum revealed a small first-degree right vaginal wall laceration. This was anesthetized with 1% lidocaine and sutured with 3-0 Vicryl suture in a running locked fashion. Estimated blood loss is approximately 150 mL. Mother is in stable condition and infant is taken to level I nursery for evaluation.
[2019-04-16] MEDS ORDERED: BENZOCAINE/MENTHOL SPRAY 1 GM/SPRAY AEROSOL TOPICAL PRN (00:14)
[2019-04-16] MEDS ORDERED: ZOLPIDEM 5 MG TAB PO PRN (00:14)
[2019-04-16] MEDS ORDERED: HYDROCORTISONE 2.5% RECTAL CREAM 30 GM TUBE RECTAL PRN (00:14)
[2019-04-16] MEDS ORDERED: diphenhydrAMINE 50 MG CAP PO PRN (00:14)
[2019-04-16] MEDS ORDERED: diphenhydrAMINE 25 MG CAP PO PRN (00:14)
[2019-04-16] MEDS ORDERED: diphenhydrAMINE 50 MG/ML 1 ML VIAL IVP PRN ×2 (00:14)
[2019-04-16] MEDS ORDERED: WITCH HAZEL 1 EACH MED..PAD TOPICAL PRN (00:14)
[2019-04-16] MEDS ORDERED: LANOLIN CREAM 5 GM TUBE TOPICAL PRN (00:14)
[2019-04-16] MEDS ORDERED: SIMETHICONE 80 MG CHEWABLE PO PRN (00:14)
[2019-04-16] MEDS ORDERED: ACETAMINOPHEN TAB 325 MG TAB PO PRN (00:14)
[2019-04-16] MEDS ORDERED: OXYTOCIN 20 UNITS/1000 ML NS 1,000 ML IV SCH (00:15)
[2019-04-16] MEDS: AMPICILLIN 1,000 MG in SODIUM CHLORIDE 0.9% 50 ML IVPB SCH ×2 (00:19→03:49)
[2019-04-16] MEDS ORDERED: LABETALOL 200 MG TAB PO PRN (00:59)
[2019-04-16] MEDS: OXYTOCIN 30 UNITS/500 ML NS 30 UNIT in SALINE 1 500ML.BAG IV SCH (06:55)
--- NOTE | 2019-04-16 07:26 | P.PNOBGVD ---
Subjective - Subjective Principal diagnosis: Status post normal vaginal delivery day #1 Interval history: Patient seen and examined. Denies nausea, vomiting, chest pain, shortness of breath or calf pain. Patient reports: Reports appetite normal, Reports voiding normally, Reports pain well controlled, Reports ambulating normally Objective - Latest Vital Signs Latest vital signs: Vital Signs Temp Pulse Resp BP BP Pulse Ox 04/16/19 03:46 98.0 F 75 16 127/85 98 04/16/19 01:45 97.5 F L 70 16 161/96 04/16/19 01:15 97.9 F 71 16 142/87 04/16/19 00:45 80 15 151/106 04/16/19 00:30 98.0 F 72 16 157/99 04/16/19 00:15 98.1 F 68 16 145/86 04/16/19 00:00 98.1 F 97 16 145/102 04/15/19 23:45 97.9 F 87 16 140/89 Intake and Output 04/15/19 04/16/19 04/16/19 22:59 06:59 14:59 Output Total 200 Balance -200 Output: Urine 200 Other: # Voids 0 - Exam Lungs: bilateral: normal Chest: Normal S1, Normal S2 Extremities: Present: normal Abdomen: Present: normal appearance, soft Uterus: Present: normal, firm Assessment and Plan (1) Normal vaginal delivery Current Visit: Yes Status: Acute Code(s): O80 - ENCOUNTER FOR FULL-TERM UNCOMPLICATED DELIVERY SNOMED Code(s): 61404909 (2) Preeclampsia Current Visit: Yes Status: Acute Code(s): O14.90 - UNSPECIFIED PRE- ECLAMPSIA, UNSPECIFIED TRIMESTER SNOMED Code(s): 820241707 Plan: 1. Monitor blood pressures closely 2. Continue care
[2019-04-16] MEDS: SENNOSIDES-DOCUSATE SODIUM 1 EACH TAB PO SCH ×2 (11:04→14:09)
[2019-04-16] MEDS: IBUPROFEN 600 MG TAB PO PRN ×2 (14:07→21:06)
[2019-04-17] MEDS: IBUPROFEN 600 MG TAB PO PRN ×2 (06:36→19:04)
[2019-04-17] MEDS: SENNOSIDES-DOCUSATE SODIUM 1 EACH TAB PO SCH (08:00)
[2019-04-17 08:02] LABS: Basophils # (A) 0.1 k/uL (0-0.2); Basophils % (A) 1 %; Eosinophils # (A) 0.4 k/uL (0-0.7); Eosinophils % (A) 5 %; HCT 34.6 % (34.0-46.0); HGB 11.7 gm/dL (11.4-16.0); Lymphocytes # (A) 3.4 k/uL (1.0-4.8); Lymphocytes % (A) 38 %; MCHC 33.9 g/dL (31.0-37.0); MCV 91.3 fL (80.0-100.0); Mean Platelet Volume 10.1; Monocytes # (A) 0.6 k/uL (0-1.0); Monocytes % (A) 6 %; Neutrophils # (A) 4.5 k/uL (1.3-7.7); Neutrophils % (A) 49 %; Platelet Count 132 k/uL (150-450); RBC 3.79 m/uL (3.80-5.40); RDW 14.8 % (11.5-15.5); WBC 9.1 k/uL (4.0-11.0)
--- NOTE | 2019-04-17 08:55 | P.DS ---
Providers Date of admission: 04/15/19 06:11 Expected date of discharge: 04/17/19 Attending physician: Sofie De La Paz Primary care physician: Stated None - Discharge Diagnosis(es) (1) Normal vaginal delivery Current Visit: Yes Status: Acute (2) Preeclampsia Current Visit: Yes Status: Acute Hospital Course: Pt presented c/o leaking fluid but was found not to be ruptured. She had a few elevated BPs and 6000 mg of protein in her urine. She was diagnosed with pre- eclampsia and underwent induction of labor with normal vaginal delivery. Post she had a few elevated BPs initially and one dose of oral labetalol. Since then, her BPs have remained 130-142/80's. She is feeling well and will be discharged home PPD #2 in stable condition to follow up with me in 1 week for a BP check. Plan - Discharge Summary Discharge Rx Participant: No New Discharge Prescriptions: New Ibuprofen [Motrin] 600 mg PO Q6HR PRN #30 tab PRN Reason: Mild Pain Or Fever >= 100.5 No Action Rwn-Czop-Cymmi Acid [-U Capsule (formulary)] 1 cap PO DAILY Discharge Medication List Ksz-Lccz-Ygptq Acid [-U Capsule (formulary)] 1 cap PO DAILY 11/29/18 [History] Ibuprofen [Motrin] 600 mg PO Q6HR PRN #30 tab 04/17/19 [Rx] Follow up Appointment(s)/Referral(s): Sofie De La Paz DO [Doctor of Osteopathic Medicine] - 1 Week (for BP check) Discharge Disposition: HOME SELF-CARE
[2019-04-17 09:29] VITALS: RESP 18
[2019-04-17 19:18] VITALS: BP 132/84; PULSE 79; TEMP 98
== END 2019-04-17 19:21 | disposition home or self-care (01) | DRG 807 ==
LOC: FBPOP 01:40 → 4FBP 02:31 → OBSVTOIN 04-15 06:11
PROVIDERS: ADMIT Obstetrics & Gynecology; ATTEND Obstetrics & Gynecology
PROC: 10E0XZZ Delivery of Products of Conception, External Approach (ICD-10-PCS; principal; 2019-04-15)
PROC: 0HQ9XZZ Repair Perineum Skin, External Approach (ICD-10-PCS; 2019-04-15)
PROC: 10907ZC Drainage of Amniotic Fluid, Therapeutic from Products of Conception, Via Natural or Artificial Opening (ICD-10-PCS; 2019-04-15)
PROC: 3E033VJ Introduction of Other Hormone into Peripheral Vein, Percutaneous Approach (ICD-10-PCS; 2019-04-15)
PROC: 00HU33Z Insertion of Infusion Device into Spinal Canal, Percutaneous Approach (ICD-10-PCS; 2019-04-15)
PROC: 3E0R3BZ Introduction of Anesthetic Agent into Spinal Canal, Percutaneous Approach (ICD-10-PCS; 2019-04-15)
DX: O14.94 Unspecified pre-eclampsia, complicating childbirth (principal); Z37.0 Single live birth; O36.5930 Maternal care for other known or suspected poor fetal growth, third trimester, not applicable or unspecified; O99.344 Other mental disorders complicating childbirth; O71.4 Obstetric high vaginal laceration alone; O13.4 Gestational [pregnancy-induced] hypertension without significant proteinuria, complicating childbirth; O69.81X0 Labor and delivery complicated by cord around neck, without compression, not applicable or unspecified; O99.52 Diseases of the respiratory system complicating childbirth; F32.9 Major depressive disorder, single episode, unspecified; J45.909 Unspecified asthma, uncomplicated; Z3A.37 37 weeks gestation of pregnancy; Z87.891 Personal history of nicotine dependence; Z91.040 Latex allergy status
CPT/HCPCS: 59025; 80076; 81001; 81050; 82565; 82570; 83615; 84112; 84156; 84450; 84460; 84520; 84550; 85025; 85610; 85730; 88307; 99213

== ENCOUNTER → 2020-01-28 | Outpatient (CLI) | payer OTHER | END | disposition home or self-care (01) | LOC: LABWHC1 10:55 | PROVIDERS: ATTEND Obstetrics & Gynecology | DX: N92.6 Irregular menstruation, unspecified (principal) | CPT/HCPCS: 36415; 84702 ==

== ENCOUNTER 2021-04-08 09:25 | Emergency (ER) | payer OTHER ==
[2021-04-08 09:29] VITALS: RESP 18; TEMP 98.3
[2021-04-08] MEDS ORDERED: diphenhydrAMINE 50 MG/ML 1 ML VIAL IVP STA (10:18)
[2021-04-08] MEDS ORDERED: methylPREDNISolone SOD SUCCI 125 MG/2 ML VIAL IV STA (10:18)
[2021-04-08] MEDS ORDERED: FAMOTIDINE 20 MG/2 ML VIAL IV STA (10:18)
--- NOTE | 2021-04-08 10:37 | ED ---
Skin/Abscess/FB HPI - General Chief complaint: Skin/Abscess/Foreign Body Stated complaint: Poss Allergic Reaction-Rash Time Seen by Provider: 04/08/21 09:53 Source: patient Mode of arrival: ambulatory Limitations: no limitations - History of Present Illness Initial comments: Patient is a 20-year-old female presenting to the emergency Department with com plaints of a possible ALLERGIC reaction to her antibiotics. She states she's been on antibiotics for a about a week for cellulitis to the back of her legs. She was described these on the eighth, she's been on Bactrim and Keflex. She states yesterday she noticed a rash starting on the top of her legs and now today has spread to her torso and her arms, it is slightly pruritic. She denies any fevers or chills. She states her initial rash on the back of her leg seems to be much improved. She denies any chest pain or shortness of breath, no trouble breathing. She denies ALLERGIES to anything else. She has no further complaints at this time. - Related Data Home Medications Medication Instructions Recorded Confirmed Loratadine [Claritin] 10 mg PO DAILY 04/08/21 04/08/21 Triamcinolone 0.1% Cream [Kenalog 1 applicatio TOPICAL BID 04/08/21 04/08/21 0.1% Cream] Previous Rx's Medication Instructions Recorded Cephalexin [Keflex] 500 mg PO QID 10 Days #40 cap 04/01/21 Sulfamethox-Tmp 800-160Mg [Bactrim 1 tab PO Q12HR #20 tab 04/01/21 DS 800-160 mg] predniSONE 50 mg PO DAILY #5 tab 04/08/21 Allergies Allergy/AdvReac Type Severity Reaction Status Date / Time Latex, Natural Rubber Allergy Swelling Verified 04/08/21 11:26 Review of Systems ROS Statement: Those systems with pertinent positive or pertinent negative responses have been documented in the HPI. ROS Other: All systems not noted in ROS Statement are negative. Past Medical History Past Medical History: Asthma History of Any Multi-Drug Resistant Organisms: None Reported Past Surgical History: No Surgical Hx Reported Past Anesthesia/Blood Transfusion Reactions: No Reported Reaction Past Psychological History: Depression Smoking Status: Never smoker Past Alcohol Use History: None Reported Past Drug Use History: Marijuana - Past Family History Mother Family Medical History: No Reported History General Exam - General Exam Comments Initial Comments: GENERAL: Patient is well-developed and well-nourished. Patient is nontoxic and in no acute distress. HEAD: Atraumatic, normocephalic. EYES: Pupils equal round and reactive to light, extraocular movements intact, sclera anicteric, conjunctiva are normal. Eyelids were unremarkable. ENT: Nares patent, oropharynx clear without exudates. Moist mucous membranes. NECK: Normal range of motion, supple without lymphadenopathy or JVD. LUNGS: Unlabored respirations. Breath sounds clear to auscultation bilaterally and equal. No wheezes rales or rhonchi. HEART: Regular rate and rhythm without murmurs, rubs or gallops. ABDOMEN: Soft, nontender, normoactive bowel sounds. No guarding, no rebound. No masses appreciated. : Deferred MUSCULOSKELETAL: Normal extremities with adequate strength and normal range of motion, no pitting or edema. No clubbing or cyanosis. SKIN: Warm, Dry, normal turgor. Patient has a generalized rash/hives consistent with ALLERGIC reaction over her upper legs, torso, arms. Limitations: no limitations Course Vital Signs 04/08/21 09:26 Temperature 98.3 F Pulse Rate 90 Respiratory 18 Rate Blood Pressure 121/67 O2 Sat by Pulse 97 Oximetry Medical Decision Making - Medical Decision Making Patient is a 20-year-old female here with a hives started yesterday, she is currently on Bactrim and Keflex for cellulitis. No difficulty breathing, no chest pain. Patient was given IV Benadryl, steroids, Pepcid. Patient was observed in the ER, rash has been improving. She is no longer pruritic. Patient will be continued on steroids over the next week. She is stable for discharge. She'll discontinue use of both antibiotics as her cellulitis has cleared. Patient will follow up with her PCP as needed. She is in agreement with this plan of care is stable for discharge. Case discussed with Dr. Layton. Disposition Clinical Impression: Allergic reaction due to antibacterial drug Disposition: HOME SELF-CARE Condition: Stable Instructions (If sedation given, give patient instructions): Urticaria (ED) Additional Instructions: Please return to the Emergency Department if symptoms worsen or any other concerns. Take steroids as prescribed starting tomorrow. Follow-up with your primary care physician as needed. Prescriptions: predniSONE 50 mg PO DAILY #5 tab Is patient prescribed a controlled substance at d/c from ED?: No Referrals: Tye Stark MD [Primary Care Provider] - 1-2 days Time of Disposition: 11:38
[2021-04-08 11:50] VITALS: BP 107/77; PULSE 80
== END 2021-04-08 11:50 | disposition home or self-care (01) ==
LOC: EC 09:25
DX: L50.9 Urticaria, unspecified (principal); T37.2X5A Adverse effect of antimalarials and drugs acting on other blood protozoa, initial encounter; J45.909 Unspecified asthma, uncomplicated; F32.9 Major depressive disorder, single episode, unspecified; F12.90 Cannabis use, unspecified, uncomplicated; Z79.52 Long term (current) use of systemic steroids; Z79.899 Other long term (current) drug therapy
CPT/HCPCS: 96374; 96375 ×2; 99282; J1200; J2930

== ENCOUNTER 2021-11-03 06:42 | Emergency (ER) | payer OTHER ==
[2021-11-03 06:51] VITALS: RESP 18; TEMP 98.2
[2021-11-03] MEDS ORDERED: SODIUM CHLORIDE 0.9% 2,000 ML IV ONE (06:57)
[2021-11-03 07:08] LABS: Basophils % (A) 1 %; Eosinophils # (A) 0.1 k/uL (0-0.7); Eosinophils % (A) 2 %; HCT 40.8 % (34.0-46.0); HGB 13.4 gm/dL (11.4-16.0); Lymphocytes # (A) 2.2 k/uL (1.0-4.8); Lymphocytes % (A) 37 %; MCH 30.4 pg (25.0-35.0); MCHC 32.9 g/dL (31.0-37.0); MCV 92.3 fL (80.0-100.0); Mean Platelet Volume 8.4; Monocytes # (A) 0.4 k/uL (0-1.0); Monocytes % (A) 6 %; Neutrophils # (A) 3.2 k/uL (1.3-7.7); Neutrophils % (A) 54 %; Platelet Count 242 k/uL (150-450); RBC 4.42 m/uL (3.80-5.40); RDW 12.8 % (11.5-15.5)
--- NOTE | 2021-11-03 07:19 | ED ---
General Adult HPI - General Chief complaint: Recheck/Abnormal Lab/Rx Stated complaint: 6 weeks , dehydrated Time Seen by Provider: 11/03/21 06:54 Source: patient, RN notes reviewed Mode of arrival: ambulatory Limitations: no limitations - History of Present Illness Initial comments: This a 21-year-old female presents to the emergency Department with chief complaint of possible dehydration. Patient states that she had a recent appointment at [facility] [employer] in which he told her she was dehydrated. She went there with concerns of possible UTI as she had some pain when she urinated but told her she only had signs ketones. Patient states his she is A0 currently 6 weeks does have follow-up appointment. Patient states she's been increasing her fluid intake. Denies any abdominal pain no fevers chills no other complaints at this time. - Related Data Home Medications Medication Instructions Recorded Confirmed No Known Home Medications 11/03/21 11/03/21 Allergies Allergy/AdvReac Type Severity Reaction Status Date / Time Latex, Natural Rubber Allergy Swelling Verified 11/03/21 07:42 Review of Systems ROS Statement: Those systems with pertinent positive or pertinent negative responses have been documented in the HPI. ROS Other: All systems not noted in ROS Statement are negative. Past Medical History Past Medical History: Asthma History of Any Multi-Drug Resistant Organisms: None Reported Past Surgical History: No Surgical Hx Reported Past Anesthesia/Blood Transfusion Reactions: No Reported Reaction Past Psychological History: Depression Smoking Status: Never smoker Past Alcohol Use History: None Reported Past Drug Use History: Marijuana - Past Family History Mother Family Medical History: No Reported History General Exam Limitations: no limitations General appearance: alert, in no apparent distress Head exam: Present: atraumatic, normocephalic, normal inspection Eye exam: Present: normal appearance, PERRL, EOMI. Absent: scleral icterus, conjunctival injection, periorbital swelling ENT exam: Present: normal exam, normal oropharynx, mucous membranes moist Neck exam: Present: normal inspection, full ROM. Absent: tenderness, meningismus, lymphadenopathy Respiratory exam: Present: normal lung sounds bilaterally. Absent: respiratory distress, wheezes, rales, rhonchi, stridor Cardiovascular Exam: Present: regular rate, normal rhythm, normal heart sounds. Absent: systolic murmur, diastolic murmur, rubs, gallop, clicks GI/Abdominal exam: Present: soft, normal bowel sounds. Absent: distended, tenderness, guarding, rebound, rigid Back exam: Absent: CVA tenderness (R), CVA tenderness (L) Course Vital Signs 11/03/21 06:49 Temperature 98.2 F Pulse Rate 87 Respiratory 18 Rate Blood Pressure 120/58 O2 Sat by Pulse 98 Oximetry Medical Decision Making - Medical Decision Making This a 21-year-old female presented for possible dehydration. Patient does have 4+ ketones she did receive or 2 L of fluid. Patient states she feels greatly improved she did have a contaminated urine had recent urinalysis with with TECHNOLOGY COORDINATOR who did not recommend antibiotics. Patient we discharged in stable condition return parameters discussed. - Lab Data Result diagrams: 11/03/21 07:04 11/03/21 07:04 Lab Results 11/03/21 11/03/21 11/03/21 Range/Units 07:04 07:04 09:35 WBC 6.0 (3.8-10.6) k/uL RBC 4.42 (3.80-5.40) m/uL Hgb 13.4 (11.4-16.0) gm/dL Hct 40.8 (34.0-46.0) % MCV 92.3 (80.0-100.0) fL MCH 30.4 (25.0-35.0) pg MCHC 32.9 (31.0-37.0) g/dL RDW 12.8 (11.5-15.5) % Plt Count 242 (150-450) k/uL MPV 8.4 Neutrophils % 54 % Lymphocytes % 37 % Monocytes % 6 % Eosinophils % 2 % Basophils % 1 % Neutrophils # 3.2 (1.3-7.7) k/uL Lymphocytes # 2.2 (1.0-4.8) k/uL Monocytes # 0.4 (0-1.0) k/uL Eosinophils # 0.1 (0-0.7) k/uL Basophils # 0.0 (0-0.2) k/uL Sodium 134 L (137-145) mmol/L Potassium 3.8 (3.5-5.1) mmol/L Chloride 104 (98-107) mmol/L Carbon Dioxide 21 L (22-30) mmol/L Anion Gap 9 mmol/L BUN 12 (7-17) mg/dL Creatinine 0.53 (0.52-1.04) mg/dL Est GFR (CKD-EPI)AfAm >90 (>60 ml/min/1.73 sqM) Est GFR (CKD-EPI)NonAf >90 (>60 ml/min/1.73 sqM) Glucose 83 (74-99) mg/dL Calcium 9.3 (8.4-10.2) mg/dL Total Bilirubin 1.1 (0.2-1.3) mg/dL AST 23 (14-36) U/L ALT 17 (4-34) U/L Alkaline Phosphatase 49 (38-126) U/L Total Protein 7.5 (6.3-8.2) g/dL Albumin 4.7 (3.5-5.0) g/dL HCG, Quant 42716.7 mIU/mL Urine Color Light Yellow Urine Appearance Cloudy H (Clear) Urine pH 5.5 (5.0-8.0) Ur Specific [place] 1.012 (1.001-1.035) Urine Protein Trace H (Negative) Urine Glucose (UA) Negative (Negative) Urine Ketones 4+ H (Negative) Urine Blood Negative (Negative) Urine Nitrite Negative (Negative) Urine Bilirubin Negative (Negative) Urine Urobilinogen <2.0 (<2.0) mg/dL Ur Leukocyte Esterase Small H (Negative) Urine WBC 7 H (0-5) /hpf Ur Squamous Epith Cells 13 H (0-4) /hpf Urine Bacteria Rare H (None) /hpf Urine Mucus Moderate H (None) /hpf Disposition Clinical Impression: , Dehydration Disposition: HOME SELF-CARE Condition: Stable Instructions (If sedation given, give patient instructions): (ED) Additional Instructions: Please return to the Emergency Department if symptoms worsen or any other amada rns. Is patient prescribed a controlled substance at d/c from ED?: No Referrals: Tye Stark MD [Primary Care Provider] - 1-2 days Time of Disposition: 10:25
[2021-11-03] MEDS ORDERED: METOCLOPRAMIDE 5 MG/ML 2 ML VIAL IVP STA (07:28)
[2021-11-03 07:40] LABS: ALT 17 U/L (4-34); AST 23 U/L (14-36); African American GFR (CKD) >90 (>60 ml/min/1.73 sqM); Albumin 4.7 g/dL (3.5-5.0); Alkaline Phosphatase 49 U/L (38-126); Anion Gap 9 mmol/L; Blood Urea Nitrogen 12 mg/dL (7-17); Calcium 9.3 mg/dL (8.4-10.2); Carbon Dioxide 21 mmol/L (22-30); Chloride 104 mmol/L (98-107); Glucose 83 mg/dL (74-99); Non-African American GFR(CKD) >90 (>60 ml/min/1.73 sqM); Potassium 3.8 mmol/L (3.5-5.1); Sodium 134 mmol/L (137-145); Total Bilirubin 1.1 mg/dL (0.2-1.3); Total Protein 7.5 g/dL (6.3-8.2)
[2021-11-03 10:09] LABS: Appearance,Urine Cloudy (Clear); Bacteria,Urine Rare /hpf; Bilirubin,Urine Negative (Negative); Blood,Urine Negative (Negative); Color,Urine Light Yellow; Glucose,Urine (UA) Negative (Negative); Ketones,Urine 4+ (Negative); Leukocyte Esterase,Urine Small (Negative); Mucus,Urine Moderate /hpf; Nitrite,Urine Negative (Negative); PH, Urine 5.5 (5.0-8.0); Protein,Urine Trace (Negative); Specific Gravity,Urine 1.012 (1.001-1.035); Squamous Epithelial Cell,Urine 13 /hpf (0-4); Urobilinogen,Urine <2.0 mg/dL (<2.0); WBC,Urine 7 /hpf (0-5)
[2021-11-03 10:35] VITALS: BP 106/63; PULSE 93
== END 2021-11-03 10:34 | disposition home or self-care (01) ==
LOC: EC 06:42
DX: O99.281 Endocrine, nutritional and metabolic diseases complicating pregnancy, first trimester (principal); E86.0 Dehydration; O99.321 Drug use complicating pregnancy, first trimester; F12.90 Cannabis use, unspecified, uncomplicated; Z3A.01 Less than 8 weeks gestation of pregnancy
CPT/HCPCS: 99283 ×2; 96374; 96361 ×2; 36415; 80053; 85025; 81001; 84702; J2765

== ENCOUNTER 2021-11-05 07:58 | Emergency (ER) | payer OTHER ==
[2021-11-05 08:06] VITALS: BP 96/62; TEMP 98.4
[2021-11-05] MEDS ORDERED: diphenhydrAMINE 50 MG/ML 1 ML VIAL IVP STA (08:26)
[2021-11-05] MEDS ORDERED: methylPREDNISolone SOD SUCCI 125 MG/2 ML VIAL IV STA (08:26)
[2021-11-05] MEDS ORDERED: FAMOTIDINE 20 MG/2 ML VIAL IV STA (08:26)
--- NOTE | 2021-11-05 08:31 | ED ---
General Adult HPI - General Chief complaint: Allergic Reaction Stated complaint: Allergic Reaction Time Seen by Provider: 11/05/21 08:05 Source: patient, RN notes reviewed, old records reviewed Mode of arrival: ambulatory Limitations: no limitations - History of Present Illness Initial comments: This is a 21-year-old female presents emergency department stating that she was in the emergency department today and got Reglan for vomiting. Patient states she went home and her face became real red and it is progressively swelling around her eyes. Patient states she went and saw her primary doctor and he gave her Claritin and clindamycin. Patient states it has not been helping. Patient states she's only taking 2 doses because she was unable to get it to yesterday. Patient denies any difficulty breathing shortness of breath per patient denies any palpitations. Patient denies any pain. Patient states her face is very itchy and warm. The swelling is bilateral. Patient denies any headache patient denies any numbness weakness. Patient denies any abdominal pain. Patient denies any rashes on her extremities. - Related Data Home Medications Medication Instructions Recorded Confirmed Clindamycin [Cleocin] 150 mg PO Q8H 11/05/21 11/05/21 Loratadine [Claritin] 10 mg PO DAILY PRN 11/05/21 11/05/21 Previous Rx's Medication Instructions Recorded predniSONE [Deltasone] 40 mg PO DAILY #8 tab 11/05/21 Allergies Allergy/AdvReac Type Severity Reaction Status Date / Time Latex, Natural Rubber Allergy Swelling Verified 11/05/21 08:33 sulfamethoxazole Allergy Rash/Hives Verified 11/05/21 08:33 [From Bactrim] trimethoprim [From Bactrim] Allergy Rash/Hives Verified 11/05/21 08:33 Review of Systems ROS Statement: Those systems with pertinent positive or pertinent negative responses have been documented in the HPI. ROS Other: All systems not noted in ROS Statement are negative. Past Medical History Past Medical History: Asthma History of Any Multi-Drug Resistant Organisms: None Reported Past Surgical History: No Surgical Hx Reported Past Anesthesia/Blood Transfusion Reactions: No Reported Reaction Past Psychological History: Depression Smoking Status: Never smoker Past Alcohol Use History: None Reported Past Drug Use History: Marijuana - Past Family History Mother Family Medical History: No Reported History General Exam - General Exam Comments Initial Comments: GENERAL: Patient is well-developed and well-nourished. Patient is nontoxic and well- hydrated and is in mild distress. ENT: Neck is soft and supple. No significant lymphadenopathy is noted. Oropharynx is clear. Moist mucous membranes. Neck has full range of motion without eliciting any pain. EYES: The sclera were anicteric and conjunctiva were pink and moist. Extraocular movements were intact and pupils were equal round and reactive to light. Eyelids were unremarkable. PULMONARY: Unlabored respirations. Good breath sounds bilaterally. No audible rales rhonchi or wheezing was noted. CARDIOVASCULAR: There is a regular rate and rhythm without any murmurs gallops or rubs. SKIN: Both cheeks are erythematous and the eyelids particularly the lower eyelid is swollen. NEUROLOGIC: Patient is alert and oriented x3. Cranial nerves II through XII are grossly intact. Motor and sensory are also intact. Normal speech, volume and content. Symmetrical smile. MUSCULOSKELETAL: Normal extremities with adequate strength and full range of motion. LYMPHATICS: No significant lymphadenopathy is noted PSYCHIATRIC: Normal psychiatric evaluation. Limitations: no limitations Course Vital Signs 11/05/21 11/05/21 08:04 09:03 Temperature 98.4 F Pulse Rate 91 80 Respiratory 20 16 Rate Blood Pressure 96/62 O2 Sat by Pulse 100 100 Oximetry Medical Decision Making - Medical Decision Making Patient received Solu-Medrol and Benadryl and Pepcid in the emergency department. I went back in to evaluate the patient she was feeling less itchy but not any less swollen. Patient denies any difficulty breathing shortness of breath or throat swelling. Disposition Clinical Impression: Allergic reaction Disposition: HOME SELF-CARE Condition: Good Additional Instructions: Patient should stop taking her loratadine and take Benadryl when necessary Prescriptions: predniSONE [Deltasone] 40 mg PO DAILY #8 tab Is patient prescribed a controlled substance at d/c from ED?: No Referrals: Tye Stark MD [Primary Care Provider] - 1-2 days Time of Disposition: 10:11
[2021-11-05 09:05] VITALS: PULSE 80; RESP 16
== END 2021-11-05 10:21 | disposition home or self-care (01) ==
LOC: EC 07:58
DX: T78.49XA Other allergy, initial encounter (principal); J45.909 Unspecified asthma, uncomplicated; F32.A Depression, unspecified; F12.90 Cannabis use, unspecified, uncomplicated; Z88.1 Allergy status to other antibiotic agents; Z88.2 Allergy status to sulfonamides; Z91.040 Latex allergy status
CPT/HCPCS: 99283; 96374; 96375 ×2; J1200; J2930

== ENCOUNTER → 2021-12-03 | Outpatient (CLI) | payer OTHER ==
--- NOTE | 2021-12-04 10:51 | US ---
EXAMINATION TYPE: Transabdominal DATE OF EXAM: 12/03/2021 4:41 PM COMPARISON: NONE CLINICAL HISTORY: Z36.89 Confirm dates. Confirm viability. . EXAM PERFORMED: Transabdominal (TA) EXAM MEASUREMENTS: GESTATIONAL AGE / DATING Physician Established: Not yet established. Dates by LMP: (10 weeks/3 days) EDC: 06/28/2022 Dates by First Scan: This is first scan. Dates by Current Scan for: (10 weeks/4 days) EDC: 06/27/2022 MATERNAL ANATOMY Uterus: 12.5 x 6.5 x 4.2 cm. Anteverted. Right Ovary: 3.1 x 1.9 x 2.0 cm. Left Ovary: 2.8 x 1.6 x 1.1 cm. Post CDS / Adnexa: Appears wnl. Presence of free fluid: None seen. Presence of corpus luteal cyst: Not seen. Presence of subchorionic bleed: Not seen. GESTATION / SURVEY CRL: 3.69 cm. (10 weeks/4 days) Yolk Sac (normal less than 6mm): 4.7 mm. Heart Rate: 168 bpm Rhythm: Normal IUP: Viable IUP Nuchal Translucency 10-14wks (normal less than 3mm): Not seen. Age Appropriate Anatomy Cord Insertion: Not well seen. Limbs: Slightly limited imaging Calvarium: Visualized Date of LMP: 09/21/2021 IMPRESSION: Viable 10 weeks 3 days with 160 beats per minute.
== END | disposition home or self-care (01) ==
LOC: RADUSWWP 16:15
PROVIDERS: ATTEND Obstetrics & Gynecology
DX: Z36.89 Encounter for other specified antenatal screening (principal); Z3A.10 10 weeks gestation of pregnancy
CPT/HCPCS: 76801

== ENCOUNTER 2022-06-15 06:00 | Inpatient (IN) | payer OTHER ==
[2022-06-15] MEDS ORDERED: OXYTOCIN 10 UNIT/ML 1 ML VIAL IM PRN (06:26)
[2022-06-15] MEDS ORDERED: METHYLERGONOVINE 0.2 MG/ML 1 ML AMP IM PRN (06:26)
[2022-06-15] MEDS ORDERED: CARBOPROST TROMETHAMINE 250 MCG/ML 1 ML AMP IM PRN (06:26)
[2022-06-15] MEDS ORDERED: TERBUTALINE 1 MG/ML VIAL SQ PRN (06:26)
[2022-06-15] MEDS ORDERED: LIDOCAINE 0.5% (PF) 5 MG/ML (50 ML SDV) SQ PRN (06:26)
[2022-06-15] MEDS ORDERED: OXYTOCIN 30 UNITS/500 ML NS 30 UNIT in SALINE 1 500ML.BAG IV SCH (06:30)
[2022-06-15 06:48] LABS: Basophils % (A) 1 %; Eosinophils # (A) 0.2 k/uL (0-0.7); Eosinophils % (A) 2 %; HCT 37.9 % (34.0-46.0); HGB 12.4 gm/dL (11.4-16.0); Lymphocytes # (A) 2.5 k/uL (1.0-4.8); Lymphocytes % (A) 31 %; MCH 29.8 pg (25.0-35.0); MCHC 32.6 g/dL (31.0-37.0); MCV 91.5 fL (80.0-100.0); Mean Platelet Volume 8.7; Monocytes # (A) 0.5 k/uL (0-1.0); Monocytes % (A) 6 %; Neutrophils # (A) 4.6 k/uL (1.3-7.7); Neutrophils % (A) 58 %; Platelet Count 285 k/uL (150-450); RBC 4.14 m/uL (3.80-5.40); RDW 12.9 % (11.5-15.5)
[2022-06-15] MEDS: LACTATED RINGERS 1,000 ML IV SCH ×2 (06:49→16:34)
[2022-06-15] MEDS ORDERED: SODIUM CHLORIDE 0.9% 100 ML BAG ONE (08:20)
[2022-06-15] MEDS ORDERED: fentaNYL (PF) 50 MCG/ML 5 ML AMP ONE (08:20)
[2022-06-15] MEDS ORDERED: BUPIVACAINE (PF) 0.25% 30 ML VIAL ONE (08:20)
--- NOTE | 2022-06-15 08:39 | P.HPOB ---
History of Present Illness H&P Date: 06/15/22 Chief Complaint: IUGR, induction of labor 21 year old presents at 38 weeks for induction of labor. HEr baby has been followed for IUGR for several weeks. NSTs are reactive. DOROTHY is wnl. Cervix is dilated 3/80/-2. She is fredrick irregularly. heart tones 135 with moderate variability and reactive. Review of Systems All systems: negative Constitutional: Denies chills, Denies fever Eyes: denies blurred vision, denies pain Ears, nose, mouth and throat: Denies headache, Denies sore throat Cardiovascular: Denies chest pain, Denies shortness of breath Respiratory: Denies cough Gastrointestinal: Denies abdominal pain, Denies diarrhea, Denies nausea, Denies vomiting Genitourinary: Denies dysuria, Denies hematuria Musculoskeletal: Denies myalgias Integumentary: Denies pruritus, Denies rash Neurological: Denies numbness, Denies weakness Psychiatric: Denies anxiety, Denies depression Endocrine: Denies fatigue, Denies weight change Past Medical History Past Medical History: Asthma History of Any Multi-Drug Resistant Organisms: None Reported Past Surgical History: No Surgical Hx Reported Past Anesthesia/Blood Transfusion Reactions: No Reported Reaction Past Psychological History: Depression Additional Psychological History / Comment(s): not currently medicated Smoking Status: Never smoker Past Alcohol Use History: None Reported Past Drug Use History: Marijuana Additional Drug Use History / Comment(s): not while - Past Family History Mother Family Medical History: No Reported History Medications and Allergies Home Medications Medication Instructions Recorded Confirmed Type Vit No.179/Iron/Folic 1 each PO 06/15/22 History [ Tablet] Allergies Allergy/AdvReac Type Severity Reaction Status Date / Time Latex, Natural Rubber Allergy Swelling Verified 06/15/22 06:23 sulfamethoxazole Allergy Rash/Hives Verified 06/15/22 06:23 [From Bactrim] trimethoprim [From Bactrim] Allergy Rash/Hives Verified 06/15/22 06:23 Exam Osteopathic Statement: *. No significant issues noted on an osteopathic structural exam other than those noted in the History and Physical/Consult. Vital Signs Temp Pulse Resp BP Pulse Ox 06/15/22 06:22 97.2 F L 90 16 121/85 99 Intake and Output 06/14/22 06/15/22 06/15/22 22:59 06:59 14:59 Other: Weight 57.606 kg Heart: RRR Lungs: CTAB Abdomen: soft, nontender Extremeties: neg miguel's Results Result Diagrams: 06/15/22 06:32 Assessment and Plan (1) Intrauterine growth restriction (IUGR) affecting care of mother Current Visit: No Status: Acute Code(s): O36.5990 - MATERN CARE FOR OTH OR SUSP POOR FETL GRTH, UNSP TRI, UNSP SNOMED Code(s): 366046297 (2) 38 weeks gestation of Current Visit: Yes Status: Acute Code(s): Z3A.38 - 38 WEEKS GESTATION OF SNOMED Code(s): 01823443 Plan: 1. induction of labor with amniotomy and pitocin 2. anticipate normal vaginal delivery
[2022-06-15] MEDS ORDERED: diphenhydrAMINE 25 MG CAP PO PRN (14:53)
[2022-06-15] MEDS ORDERED: diphenhydrAMINE 50 MG CAP PO PRN (14:53)
[2022-06-15] MEDS ORDERED: BENZOCAINE/MENTHOL SPRAY 1 GM/SPRAY AEROSOL TOPICAL PRN (14:53)
[2022-06-15] MEDS ORDERED: SIMETHICONE 80 MG CHEWABLE PO PRN (14:53)
[2022-06-15] MEDS ORDERED: ZOLPIDEM 5 MG TAB PO PRN (14:53)
[2022-06-15 15:04] VITALS: RESP 16
[2022-06-15] MEDS: ACETAMINOPHEN TAB 325 MG TAB PO PRN (18:07)
[2022-06-15] MEDS: SENNOSIDES-DOCUSATE SODIUM 1 EACH TAB PO SCH (20:33)
[2022-06-15] MEDS ORDERED: MEASLES-MUMPS-RUBELLA VACC/PF 12,500 UNIT/0.5 ML VIAL SQ ONE (21:52)
[2022-06-16] MEDS: IBUPROFEN 600 MG TAB PO PRN ×2 (00:26→05:56)
[2022-06-16] MEDS: SENNOSIDES-DOCUSATE SODIUM 1 EACH TAB PO SCH (06:20)
[2022-06-16 07:44] LABS: Basophils % (A) 0 %; Eosinophils # (A) 0.2 k/uL (0-0.7); Eosinophils % (A) 2 %; HCT 34.7 % (34.0-46.0); HGB 11.3 gm/dL (11.4-16.0); Lymphocytes # (A) 2.5 k/uL (1.0-4.8); Lymphocytes % (A) 26 %; MCH 29.9 pg (25.0-35.0); MCHC 32.4 g/dL (31.0-37.0); MCV 92.3 fL (80.0-100.0); Mean Platelet Volume 9.4; Monocytes # (A) 0.7 k/uL (0-1.0); Monocytes % (A) 7 %; Neutrophils # (A) 6.1 k/uL (1.3-7.7); Neutrophils % (A) 64 %; Platelet Count 222 k/uL (150-450); RBC 3.76 m/uL (3.80-5.40); WBC 9.6 k/uL (3.8-10.6)
[2022-06-16 07:58] VITALS: BP 118/72; PULSE 71; TEMP 98
--- NOTE | 2022-06-16 09:02 | P.PROBDLV ---
Vaginal Delivery Note - . Vaginal Delivery Note: 21 year old presents at 38 weeks for induction of labor. HEr baby has been followed for IUGR for several weeks. NSTs are reactive. DOROTHY is wnl. Cervix is dilated 3/80/-2. She is fredrick irregularly. heart tones 135 with moderate variability and reactive. Pitocin augmentation was started. Amniotomy performed at 6:55 AM and clear fluid noted. When she was uncomfortable she did get an epidural. Her cervix was completely dilated at 1326. She pushed, d elivered a viable female infant at 1340 over intact perineum under epidural anesthesia. Head delivered OA, anterior shoulder delivered gentle downward guidance followed by posterior shoulder and rest of body. Nose and mouth bulb suctioned, cord clamped and cut, infant placed mother's abdomen. Apgars 9, 9, weight 6 lbs. 4 oz. Placenta delivered spontaneously, intact with three-vessel cord at 1343. Vagina, cervix, perineum inspected. No lacerations noted. Estimated blood loss 50 mL. Mother and baby in stable condition.
--- NOTE | 2022-06-16 09:03 | P.DS ---
Providers Date of admission: 06/15/22 06:08 Expected date of discharge: 06/16/22 Attending physician: Sofie De La Paz Primary care physician: Stated None - Discharge Diagnosis(es) (1) Intrauterine growth restriction (IUGR) affecting care of mother Current Visit: No Status: Resolved (2) 38 weeks gestation of Current Visit: Yes Status: Resolved (3) Normal vaginal delivery Current Visit: No Status: Acute Hospital Course: Patient presented for induction of labor. She underwent a normal vaginal delivery. course was uncomplicated. She denies nausea, vomiting, chest pain, shortness of breath or any calf pain. Patient will be discharged home day #1 in stable condition to follow-up with me in 6 weeks. Plan - Discharge Summary New Discharge Prescriptions: New Ibuprofen [Motrin] 600 mg PO Q6HR PRN #30 tab PRN Reason: Mild Pain (Scale 1 To 3) No Action Vit No.179/Iron/Folic [ Tablet] 1 each PO DAILY Discharge Medication List Vit No.179/Iron/Folic [ Tablet] 1 each PO DAILY 06/15/22 [History] Ibuprofen [Motrin] 600 mg PO Q6HR PRN #30 tab 06/16/22 [Rx] Follow up Appointment(s)/Referral(s): Sofie De La Paz DO [Doctor of Osteopathic Medicine] - 07/26/22 11:15 am Discharge Disposition: HOME SELF-CARE
[2022-06-16] MEDS: ACETAMINOPHEN TAB 325 MG TAB PO PRN (11:36)
== END 2022-06-16 15:20 | disposition home or self-care (01) | DRG 807 ==
LOC: 4FBP 06:08
PROVIDERS: ADMIT Obstetrics & Gynecology; ATTEND Obstetrics & Gynecology
PROC: 10E0XZZ Delivery of Products of Conception, External Approach (ICD-10-PCS; principal; 2022-06-16)
PROC: 4A0HXCZ Measurement of Products of Conception, Cardiac Rate, External Approach (ICD-10-PCS; 2022-06-16)
PROC: 10907ZC Drainage of Amniotic Fluid, Therapeutic from Products of Conception, Via Natural or Artificial Opening (ICD-10-PCS; 2022-06-16)
PROC: 3E033VJ Introduction of Other Hormone into Peripheral Vein, Percutaneous Approach (ICD-10-PCS; 2022-06-16)
DX: O36.5930 Maternal care for other known or suspected poor fetal growth, third trimester, not applicable or unspecified (principal); Z37.0 Single live birth; J45.909 Unspecified asthma, uncomplicated; O99.52 Diseases of the respiratory system complicating childbirth; F32.A Depression, unspecified; O99.344 Other mental disorders complicating childbirth; Z3A.38 38 weeks gestation of pregnancy; Z88.8 Allergy status to other drugs, medicaments and biological substances; Z88.2 Allergy status to sulfonamides; Z91.040 Latex allergy status; Z91.048 Other nonmedicinal substance allergy status
CPT/HCPCS: 85025; 86850; 86900; 86901; 90471; 90707

== ENCOUNTER 2023-11-10 18:09 | Emergency (ER) | payer OTHER ==
--- NOTE | 2023-11-10 18:47 | ED ---
Arrhythmia/Palpitations HPI - General Chief Complaint: Arrhythmia/Palpitations Stated Complaint: chest palpitations Time Seen by Provider: 11/10/23 18:46 Source: patient, RN notes reviewed Mode of arrival: ambulatory Limitations: no limitations - History of Present Illness Initial Comments: Patient is a 23-year-old female presented to ER with a chief complaint of palpitations. Patient states for the past 2 days she has been having heart palpitations and shortness of breath especially with laying down. Patient reports she has been having cough, congestion and runny nose for the past 3 days. Denies fevers does report chills. Patient does not smoking, calf tenderness or tightness or recent travel. Patient is on control. Denies any chest pain, shortness of breath, abdominal pain, urinary complaints or peripheral edema. - Related Data Home Medications Medication Instructions Recorded Confirmed Vit No.179/Iron/Folic 1 each PO DAILY 06/15/22 06/15/22 [ Tablet] Previous Rx's Medication Instructions Recorded Ibuprofen [Motrin] 600 mg PO Q6HR PRN #30 tab 06/16/22 Allergies Allergy/AdvReac Type Severity Reaction Status Date / Time Latex, Natural Rubber Allergy Swelling Verified 11/10/23 18:40 sulfamethoxazole Allergy Rash/Hives Verified 11/10/23 18:40 [From Bactrim] trimethoprim [From Bactrim] Allergy Rash/Hives Verified 11/10/23 18:40 Review of Systems ROS Statement: Those systems with pertinent positive or pertinent negative responses have been documented in the HPI. ROS Other: All systems not noted in ROS Statement are negative. Past Medical History Past Medical History: Asthma History of Any Multi-Drug Resistant Organisms: None Reported Past Surgical History: No Surgical Hx Reported Past Anesthesia/Blood Transfusion Reactions: No Reported Reaction Past Psychological History: Depression Smoking Status: Never smoker Past Alcohol Use History: None Reported Past Drug Use History: Marijuana - Past Family History Mother Family Medical History: No Reported History General Exam - General Exam Comments Initial Comments: Visual Physical Exam Vital signs reviewed General: Well-appearing, nontoxic, no acute distress. Head: Normocephalic, atraumatic Eyes: PERRLA, EOMI ENT: Airway patent Chest: Nonlabored breathing Skin: No visual rash, normal skin tone Neuro: Alert and oriented 3 Musculoskeletal: No gross abnormalities Limitations: no limitations General appearance: alert, in no apparent distress Head exam: Present: atraumatic, normocephalic, normal inspection Eye exam: Present: normal appearance, PERRL, EOMI. Absent: scleral icterus, conjunctival injection, periorbital swelling ENT exam: Present: normal exam, normal oropharynx, mucous membranes moist, TM's normal bilaterally Neck exam: Present: normal inspection. Absent: tenderness, meningismus, lymphadenopathy Respiratory exam: Present: normal lung sounds bilaterally. Absent: respiratory distress, wheezes, rales, rhonchi, stridor Cardiovascular Exam: Present: normal rhythm, tachycardia, normal heart sounds GI/Abdominal exam: Present: soft, normal bowel sounds. Absent: distended, tenderness, guarding, rebound, rigid Extremities exam: Present: normal inspection, full ROM, normal capillary refill. Absent: tenderness, pedal edema, joint swelling, calf tenderness Neurological exam: Present: alert, oriented X3, CN II-XII intact Psychiatric exam: Present: normal affect, normal mood Skin exam: Present: warm, intact, normal color, diaphoretic. Absent: rash Course Vital Signs 11/10/23 18:37 Temperature 98.8 F Pulse Rate 135 H Respiratory 18 Rate Blood Pressure 125/80 O2 Sat by Pulse 99 Oximetry Medical Decision Making - Medical Decision Making I performed the quick note portion of this chart. Electronically signed by Frida Medina PA-C Was pt. sent in by a medical professional or institution ([facility], [employer], urgent care, hospital, or prison...) When possible be specific @ -No Did you speak to anyone other than the patient for history (EMS, parent, family, police, friend...)? What history was obtained from this source @ -No Did you review nursing and triage notes (agree or disagree)? Why? @ -I reviewed and agree with nursing and triage notes Were old charts reviewed (outside hosp., previous admission, EMS record, old EKG, old radiological studies, urgent care reports/EKG's, prison records)? Report findings @ -No old charts were reviewed Differential Diagnosis (chest pain, altered mental status, abdominal pain women, abdominal pain men, vaginal bleeding, weakness, fever, dyspnea, syncope, headache, dizziness, GI bleed, back pain, seizure, CVA, palpatations, mental health, musculoskeletal)? @ -Differential Palpitations Ventricular arrhythmias, atrial arrhythmias, myocardial infarction, anemia, thyrotoxicosis, electrolyte imbalance, hypokalemia, pulmonary embolism, pulmonary disease, drugs, alcohol, anxiety, stress.... This is not meant to be an all-inclusive list. EKG interpreted by me (3pts min.). @ -As above X-rays interpreted by me (1pt min.). @ -Chest x-ray interpreted by me shows no acute process. CT interpreted by me (1pt min.). @ -None done U/S interpreted by me (1pt. min.). @ -None done What testing was considered but not performed or refused? (CT, X-rays, U/S, labs)? Why? @ -None What meds were considered but not given or refused? Why? @ -None Did you discuss the management of the patient with other professionals (professionals i.e. , PA, [employer], lab, RT, psych nurse, 7th grade social studies teacher, steam trap man, teacher, data officer, rn case manager)? Give summary @ -No Was smoking cessation discussed for >3mins.? @ -No Was critical care preformed (if so, how long)? @ -No Were there social determinants of health that impacted care today? How? (Homelessness, low income, unemployed, alcoholism, drug addiction, transportation, low edu. Level, literacy, decrease access to med. care, intermediate, rehab)? @ -No Was there de-escalation of care discussed even if they declined (Discuss DNR or withdrawal of care, Hospice)? DNR status @ -No What co-morbidities impacted this encounter? (DM, HTN, Smoking, COPD, CAD, Cancer, CVA, ARF, Chemo, Hep., AIDS, mental health diagnosis, sleep apnea, morbid obesity)? @ -Anxiety Was patient admitted / discharged? Hospital course, mention meds given and route, prescriptions, significant lab abnormalities, going to OR and other pertinent info. @ -Discharge. Patient is a 23-year-old female presented to ER with chief complaint of URI symptoms and palpitations. History and physical exam were completed. Vitals significant for tachycardic at 135 on arrival. All other vital stable. Patient in no signs of acute distress. Nontoxic-appearing patient was mildly diaphoretic and tachycardic on exam. Lung sounds clear to auscultation bilaterally. Labs obtained in the ER unremarkable. Due to concern of possible PE as patient is on control and is tachycardic D-dimer was ordered. D- dimer negative at 0.29. Flu, RSV, COVID-negative. Chest x-ray shows no acute process. EKG showed sinus tachycardia with occasional PAC. No evidence of infarct or ischemia. I reviewed results with patient, all questions answered. I advised her to follow-up with PCP in the next 1 to 2 days. Return parameters were discussed. Patient be discharged stable condition with follow-up to PCP. Patient expressed understanding and agreement with care plan. Undiagnosed new problem with uncertain prognosis? @ -No Drug Therapy requiring intensive monitoring for toxicity (Heparin, Nitro, Insulin, Cardizem)? @ -No Were any procedures done? @ -No Diagnosis/symptom? @ -Viral sinusitis/palpitations/tachycardia Acute, or Chronic, or Acute on Chronic? @ -Acute Uncomplicated (without systemic symptoms) or Complicated (systemic symptoms)? @ -Uncomplicated Side effects of treatment? @ -No Exacerbation, Progression, or Severe Exacerbation? @ -No Poses a threat to life or bodily function? How? (Chest pain, USA, PR, pneumonia, PE, COPD, DKA, ARF, appy, cholecystitis, CVA, Diverticulitis, Homicidal, Suicidal, threat to staff... and all critical care pts) @ -No - Lab Data Result diagrams: 11/10/23 20:45 11/10/23 19:08 Lab Results 11/10/23 11/10/23 11/10/23 Range/Units 18:43 19:08 19:08 WBC (3.8-10.6) k/uL RBC (3.80-5.40) m/uL Hgb (11.4-16.0) gm/dL Hct (34.0-46.0) % MCV (80.0-100.0) fL MCH (25.0-35.0) pg MCHC (31.0-37.0) g/dL RDW (11.5-15.5) % Plt Count (150-450) k/uL MPV PT 10.6 (10.0-12.5) sec INR 1.0 (<1.2) APTT 26.0 (22.0-30.0) sec D-Dimer 0.29 (<0.60) mg/L FEU Sodium 141 (137-145) mmol/L Potassium 4.0 (3.5-5.1) mmol/L Chloride 109 H (98-107) mmol/L Carbon Dioxide 21 L (22-30) mmol/L Anion Gap 11 mmol/L BUN 17 (7-17) mg/dL Creatinine 0.58 (0.52-1.04) mg/dL Est GFR (CKD-EPI)AfAm >90 (>60 ml/min/1.73 sqM) Est GFR (CKD-EPI)NonAf >90 (>60 ml/min/1.73 sqM) Glucose 96 (74-99) mg/dL Calcium 9.6 (8.4-10.2) mg/dL Total Bilirubin 0.5 (0.2-1.3) mg/dL AST 27 (14-36) U/L ALT 21 (4-34) U/L Alkaline Phosphatase 44 (38-126) U/L Troponin I (0.000-0.034) ng/mL Total Protein 7.5 (6.3-8.2) g/dL Albumin 4.8 (3.5-5.0) g/dL Influenza Type A (PCR) Not Detected (Not Detectd) Influenza Type B (PCR) Not Detected (Not Detectd) RSV (PCR) Not Detected (Not Detectd) SARS-CoV-2 (PCR) Not Detected (Not Detectd) 11/10/23 11/10/23 Range/Units 19:08 20:45 WBC 6.5 (3.8-10.6) k/uL RBC 4.50 (3.80-5.40) m/uL Hgb 13.8 (11.4-16.0) gm/dL Hct 41.8 (34.0-46.0) % MCV 93.0 (80.0-100.0) fL MCH 30.8 (25.0-35.0) pg MCHC 33.1 (31.0-37.0) g/dL RDW 13.1 (11.5-15.5) % Plt Count 277 (150-450) k/uL MPV 8.1 PT (10.0-12.5) sec INR (<1.2) APTT (22.0-30.0) sec D-Dimer (<0.60) mg/L FEU Sodium (137-145) mmol/L Potassium (3.5-5.1) mmol/L Chloride (98-107) mmol/L Carbon Dioxide (22-30) mmol/L Anion Gap mmol/L BUN (7-17) mg/dL Creatinine (0.52-1.04) mg/dL Est GFR (CKD-EPI)AfAm (>60 ml/min/1.73 sqM) Est GFR (CKD-EPI)NonAf (>60 ml/min/1.73 sqM) Glucose (74-99) mg/dL Calcium (8.4-10.2) mg/dL Total Bilirubin (0.2-1.3) mg/dL AST (14-36) U/L ALT (4-34) U/L Alkaline Phosphatase (38-126) U/L Troponin I <0.012 (0.000-0.034) ng/mL Total Protein (6.3-8.2) g/dL Albumin (3.5-5.0) g/dL Influenza Type A (PCR) (Not Detectd) Influenza Type B (PCR) (Not Detectd) RSV (PCR) (Not Detectd) SARS-CoV-2 (PCR) (Not Detectd) - EKG Data -: EKG Interpreted by Me EKG Comments: EKG taken at 18: 52 shows sinus tachycardia with an occasional PAC. No acute ST segment or T wave abnormalities. Ventricular rate 113, ME interval 128, QRS duration 78, QT/QTc 338/463. - Radiology Data Radiology results: report reviewed, image reviewed Disposition Clinical Impression: Acute viral sinusitis, Palpitations Disposition: HOME SELF-CARE Condition: Stable Instructions (If sedation given, give patient instructions): Heart Palpitations (ED) Additional Instructions: Please use [id number] Tylenol and Motrin for fever control. Please follow-up with PCP in the next 1 to 2 days. Return to the ER for any new or worsening symptoms. Is patient prescribed a controlled substance at d/c from ED?: No Referrals: Jules Reveles [Primary Care Provider] - 1-2 days Time of Disposition: 21:33
[2023-11-10 18:55] VITALS: RESP 18
[2023-11-10 19:33] LABS: ALT 21 U/L (4-34); AST 27 U/L (14-36); African American GFR (CKD) >90 (>60 ml/min/1.73 sqM); Albumin 4.8 g/dL (3.5-5.0); Alkaline Phosphatase 44 U/L (38-126); Anion Gap 11 mmol/L; Blood Urea Nitrogen 17 mg/dL (7-17); Calcium 9.6 mg/dL (8.4-10.2); Carbon Dioxide 21 mmol/L (22-30); Chloride 109 mmol/L (98-107); Glucose 96 mg/dL (74-99); Non-African American GFR(CKD) >90 (>60 ml/min/1.73 sqM); Sodium 141 mmol/L (137-145); Total Bilirubin 0.5 mg/dL (0.2-1.3); Total Protein 7.5 g/dL (6.3-8.2)
[2023-11-10 19:42] LABS: Prothrombin Time 10.6 sec (10.0-12.5)
--- NOTE | 2023-11-10 20:44 | XR ---
EXAMINATION TYPE: XR chest 2V DATE OF EXAM: 11/10/2023 8:09 PM CLINICAL INDICATION:Female, 23 years old with history of cough palpitation; COMPARISON: Chest radiographs from 12/08/2018 TECHNIQUE: XR chest 2V Frontal and lateral views of the chest. FINDINGS: Lungs/Pleura: There is no evidence of pleural effusion, focal consolidation, or pneumothorax. Pulmonary vascularity: Unremarkable. Heart/mediastinum: Cardiomediastinal silhouette is unremarkable. Musculoskeletal: No acute osseous pathology. Other findings: None IMPRESSION: No acute cardiopulmonary disease/process.
[2023-11-10 21:10] LABS: HCT 41.8 % (34.0-46.0); HGB 13.8 gm/dL (11.4-16.0); MCH 30.8 pg (25.0-35.0); MCHC 33.1 g/dL (31.0-37.0); Mean Platelet Volume 8.1; Platelet Count 277 k/uL (150-450); RDW 13.1 % (11.5-15.5); WBC 6.5 k/uL (3.8-10.6)
[2023-11-10 23:11] VITALS: BP 109/75; PULSE 89; TEMP 98.1
== END 2023-11-10 22:47 | disposition home or self-care (01) ==
LOC: EC 18:09
DX: J01.90 Acute sinusitis, unspecified (principal); R00.2 Palpitations; R00.0 Tachycardia, unspecified; J45.909 Unspecified asthma, uncomplicated; F12.90 Cannabis use, unspecified, uncomplicated; Z20.822 Contact with and (suspected) exposure to COVID-19; Z88.1 Allergy status to other antibiotic agents; Z88.2 Allergy status to sulfonamides; Z91.040 Latex allergy status
CPT/HCPCS: 36415; 71046; 80053; 84484; 85027; 85379; 85610; 85730; 87636; 93005; 99285